=== PATIENT | male | born 1935 | race Caucasian/White ===

== ENCOUNTER → 2021-03-18 10:18 | Outpatient (CLI) | payer MEDICARE, SELFPAY ==
[2021-03-18 12:31] LABS: Hematocrit 36.2 % (40-54); Hemoglobin 11.3 g/dL (13.0-16.5); Mean Corp Hgb Conc 31.2 g/dL (32-36); Mean Corpuscular Hgb 30.1 pg (27.0-32.0); Mean Corpuscular Volume 96.5 fL (80-94); Mean Platelet Vol. 9.5 fl (6.2-12.0); Platelet Count 310 K/mm3 (150-450); RBC Distribution Width CV 12.6 % (11.6-14.6); RBC Distribution Width SD 45.1 fl (35.1-43.9); Red Blood Count 3.75 M/mm3 (4.6-6.2); White Blood Count 10.1 K/mm3 (4.4-11.0)
[2021-03-18 12:58] LABS: Anion Gap 5 (5-15); BUN 23 mg/dL (7-18); BUN/Creat Ratio 20.5 RATIO (10-20); Calcium,Total 9.4 mg/dL (8.5-10.1); Chloride 107 mmol/L (98-107); Creatinine, Serum 1.12 mg/dL (0.70-1.30); EST Glomerular Filtration Rate 66 mL/min (>60); Est Glom Filt Rate - Afr Amer 80 mL/min (>60); Glucose 91 mg/dL (74-106); Potassium 4.2 mmol/L (3.5-5.1); Sodium Level 140 mmol/L (136-145)
== END ==
PROVIDERS: PCP Nurse Practitioner Family; Referring Provider Urology; Visit Provider Urology
DX: N40.3 Nodular prostate with lower urinary tract symptoms (principal); I10 Essential (primary) hypertension
CPT/HCPCS: 36415; 80048; 84153; 85027

== ENCOUNTER 2021-04-16 10:38 | Day surgery (SDC) | payer MEDICARE, SELFPAY ==
--- NOTE | 2021-04-15 09:42 | EKG12_ITS ---
Test Reason : PRE OP Blood Pressure : / mmHG Vent. Rate : 078 BPM Atrial Rate : 078 BPM P-R Int : 164 ms QRS Dur : 134 ms QT Int : 398 ms P-R-T Axes : 074 089 071 degrees QTc Int : 453 ms Normal sinus rhythm Right bundle branch block Abnormal ECG Confirmed by MARY TORRE, MARIELENA ([id number]), newspaper editor managing WHITNEY MONTENEGRO ([id number]) on 04/16/2021 9:33:24 AM Referred By: Rogers Mac Confirmed By:MARIELENA HERNANDEZ MD
[2021-04-16] VITALS (12 sets, daily range): BP systolic 115–157; BP diastolic 40–70; PULSE 67–84; RESP 16–18; TEMP 36.3–36.9; O2SAT 92–100; BMI 21.5
[2021-04-16] MEDS: Lactated Ringers 1,000 ML 100 ML IV (11:07)
--- NOTE | 2021-04-16 12:35 | PROS_PTH ---
PATIENT: LENORE GRAJEDA LOC: [facility] U#:[id number] AGE/SX: 85/M ROOM: RE04/16/[address]: Dr. Rogers Mac MD : [id number] BED: DIS: 04/17/2021 SPEC #: [id number] RECD: 04/16/21 15:52 STATUS: SONJA REBhargav #: [id number] ORTIZ: 04/16/21 12:[address]: Rogers Mac DEPT: SURGICAL PATHOLOGY RECD BY: Megha Veliz ENTERED: 04/17/21 10:14 SP TYPE: TURP OTHR DR: Sharona Ramos, BRASS CUTTER-C Tissues: Prostate, NOS Procedures: Surgery Specimen Level IV HEADER OPERATION: Cysto, TUR prostate, Olympus PRE-OP DIAGNOSIS: Urinary retention, BPH TISSUE SUBMITTED: Prostate chips MICROSCOPIC DIAGNOSIS Prostate chips, TUR: Prostatic adenocarcinoma. See cancer summary in the comment section. SJ:antony 04/18/2021 COMMENT PROSTATE CANCER (TUR) SUMMARY: Procedure ? Transurethral resection of prostate (TURP) Histologic type - acinar adenocarcinoma Histologic grade ([place] Pattern) ? Winifred grade group 3 (Winifred score 4+3=7) Tertiary pattern ? 5 is also noted Percentage of pattern 5 ? 10% Tumor Quantitation (TUR specimens): Estimated percentage of prostate involved by tumor - ~75 to 80% Number of positive chips - ~60 Total number of chips - ~75 Periprostatic fat invasion ? not applicable Seminal vesicle invasion - not applicable Lymphvascular invasion ? not identified Perineural invasion ? not identified Additional pathologic findings ? benign prostatic hyperplasia - Chronic inflammation. Treatment effect ? no known presugical therapy. The above summary is in compliance with [employer] of [employer] (CAP) Cancer Protocols Checklist and [place] [employer] Committee on Cancer (AJCC), Staging Manual, 8th Ed. Case has been reviewed in consultation with Dr. Cedeno who concurs with the above diagnosis. IDC:AM MICROSCOPIC DESCRIPTION Slides are reviewed. GROSS DESCRIPTION Received is one container labeled with the patient's name and designated prostate tissue. The specimen consists of multiple irregular fragments of pink-valdez, rubbery, soft tissue that in aggregate weigh 5.1 gm and measure in aggregate 6 x 6 x 0.3 cm. The entire specimen is submitted in five cassettes. / AM:antony 04/17/21 TC:0 CPT: 02906
[2021-04-16] MEDS: Cefazolin 2 GM in 0.9% Normal Saline 100 ML IV (13:02)
--- NOTE | 2021-04-16 13:07 | HP.PCM_ITS ---
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 [facility] Medical History (Updated 04/16/21 @ 13:[address] Rogers Mac MD) Arthritis Back pain Cardiology follow-up encounter Former smoker High cholesterol History of pain when walking History of ulceration Hypertension Shortness of breath on exertion Skin tear TIA (transient ischemic attack) Wears dentures Wears glasses Home Medications Glucosamine Chondroitin 2 cap PO DAILY 04/14/21 [History Last Taken Unknown] PreserVision AREDS 1 cap PO DAILY 04/14/21 [History Last Taken Unknown] Restless Leg Relief 2 tab PO/SL QHS 04/14/21 [History Last Taken Unknown] acetaminophen 500 mg PO DAILY 04/14/21 [History Last Taken Unknown] aspirin [Aspirin Low Dose] 81 mg PO DAILY 04/14/21 [History Last Taken 04/11/21] diphenhydramine HCl [Benadryl Allergy] 25 mg PO Q6H PRN 04/14/21 [History Last Taken Unknown] diphenhydramine-acetaminophen [Acetaminophen PM] 2 tab PO QHS 04/14/21 [History Last Taken Unknown] dutasteride-tamsulosin 1 cap PO DAILY 04/14/21 [History Last Taken Unknown] fish,saf,flx,brg oils-O3,6,9#2 1 cap PO DAILY 04/14/21 [History Last Taken Unknown] magnesium 250 mg PO DAILY 04/14/21 [History Last Taken Unknown] metoprolol succinate 25 mg PO DAILY 04/14/21 [History Last Taken 04/16/21] niacin 1,000 mg PO DAILY 04/14/21 [History Last Taken Unknown] pravastatin 40 mg PO QHS 04/14/21 [History Last Taken Unknown] saw palmetto 450 mg PO DAILY 04/14/21 [History Last Taken Unknown] tamsulosin 0.4 mg PO DAILY 04/14/21 [History Last Taken Unknown] turmeric 1,000 mg PO DAILY 04/14/21 [History Last Taken Unknown] ciprofloxacin HCl [Cipro] 500 mg PO BID #14 tab 04/16/21 [Rx Last Taken Unknown] Allergy/AdvReac Type Severity Reaction Status Date / Time No Known Allergies Allergy Verified 04/16/21 10:44 Surgical History (Updated 04/14/21 @ 12:26 by Yamini Pedroza) History of cardiac catheterization (~2009) History of coronary artery stent placement (~2009) Social History Smoking Status: Former smoker Vital Signs Vital Signs Vital Signs: 04/16/21 11:08 Temperature 97.3 F L Temperature Source Temporal Pulse Rate 78 Respiratory Rate 16 Respiratory Pattern Normal Blood Pressure 157/70 H Blood Pressure Mean 99 Blood Pressure Source Monitor Blood Pressure Position Semi-Fowlers Blood Pressure Location Left Arm Pulse Ox 99 Oxygen Delivery Method Room Air Weight Weight: 70.1 kg Body Mass Index (BMI) 21.5 Physical Exam Const alert and oriented x3 General Appearance: cooperative HEENT normocephalic, head/scalp atraumatic, EAC's normal and TM's normal bilaterally Eyes PERRL and EOMs intact bilaterally Pupil: sluggish Neck no lymphadenopathy, supple and no JVD General: trachea midline Lymph Lymphatic: no lymphadenopathy noted, lymphedema and lymphadenopathy Resp normal respiratory effort, normal air movement and clear to auscultation bilaterally Cardio regular rate, regular rhythm and peripheral pulses 2+ throughout GI soft to palpation, non-tender and non-distended Extremity normal capillary refill and no clubbing, cyanosis or edema General Extremity: no tenderness to palpation of joints or extremities Skin no rashes or lesions noted General Skin Exam: turgor normal Lesions: no lesions Rashes: no rashes Neuro CN's II-XII intact bilaterally Speech: speech normal Motor Exam: strength 5/5 throughout; Negative for general weakness Psych thought process normal, cooperative and affect normal Appearance: appropriate Assessment & Plan Assessment/Plan (1) Urinary retention: PLAN: Urinary retention due to berhane BPH and obstruction plan to proceed with a TURP. Patient understands no guarantees that he will be able to urinate after surgery
--- NOTE | 2021-04-16 13:09 | PCM.DC ---
Discharge Instructions Diet Discharge Diet: No restrictions Activity Discharge Activity: May not drive while taking narcotic pain medications. (for 3 days.) May shower in (days): 1 Dressing / Incision Call your doctor if your incision/area has: Continuous Slow Oozing, Increased Pain/ Swelling, Increased Redness and Foul Smelling Discharge Call your doctor if you observe: Fever of 101 or Higher, Numbness or Tingling, Shortness of breath, Dizziness, Calf discomfort and Uncontrolled pain Cleanse incision/area with: Keep Dressing Clean & Dry Follow Up Care Please Follow Up With: Rogers Mac MD When: Call [phone] for an appointment Test Results: Test results from this visit will be discussed in further detail at your follow-up appointment, if applicable. Discharge Plan Admission Primary Reason for Your Visit: Narendra Attending Provider: Rogers Mac Primary Care Provider: Sharona Ramos NP Discharge Orders/Prescriptions Prescriptions: New ciprofloxacin HCl [Cipro] 500 mg tablet 500 mg PO BID Qty: 14 RF: 0 Continued pravastatin 40 mg tablet 40 mg PO QHS RF: 0 acetaminophen 500 mg Tablet 500 mg PO DAILY RF: 0 tamsulosin 0.4 mg capsule 0.4 mg PO DAILY RF: 0 diphenhydramine HCl [Benadryl Allergy] 25 mg Tablet 25 mg PO Q6H PRN (Reason: ALLERGIES) RF: 0 niacin 500 mg Tablet 1,000 mg PO DAILY RF: 0 magnesium 250 mg Tablet 250 mg PO DAILY RF: 0 metoprolol succinate 25 mg tablet extended release 24 hr 25 mg PO DAILY RF: 0 diphenhydramine-acetaminophen [Acetaminophen PM] 25-500 mg Tablet 2 tab PO QHS RF: 0 saw palmetto 450 mg Capsule 450 mg PO DAILY RF: 0 PreserVision AREDS [id number] Capsule 1 cap PO DAILY RF: 0 fish,saf,flx,brg oils-O3,6,9#2 [id number] mg Capsule 1 cap PO DAILY RF: 0 dutasteride-tamsulosin 0.5-0.4 mg capsule, ER multiphase 24 hr 1 cap PO DAILY RF: 0 turmeric 400 mg Capsule 1,000 mg PO DAILY RF: 0 Glucosamine Chondroitin 550-30-1 mg Capsule 2 cap PO DAILY RF: 0 Restless Leg Relief 2 tab PO/SL QHS RF: 0 Held aspirin [Aspirin Low Dose] 81 mg Tablet,Delayed Release (Dr/Ec) 81 mg PO DAILY RF: 0 Hold Instructions: Resume on 04/30/21. Referrals / Follow Up: Rogers Mac MD [STAFF PHYSICIAN] - Sharona Ramos NP, WILDLIFE BIOLOGY TECHNICIAN-C [Primary Care Provider] -
--- NOTE | 2021-04-16 13:54 | OP.PCM_ITS ---
Report of Operation Date of Procedure: 04/16/21 Pre-Operative Diagnosis: BPH with retention of urine Post-Operative Diagnosis: Same Surgery/Procedure Performed:: Transurethral resection of prostate Description of Surgical Findings:: In the preoperative setting I discussed with the patient how the surgery would be done with expect afterwards. We discussed how a prostate resection is done and we discussed the risk of the surgery inclu ding, bleeding, infection, retrograde ejaculation, changes with ejaculation or intercourse,. We discussed the possibility that the resection of the prostate may not alleviate his urinary symptoms. We discussed the small risk of developing scar tissue along the urethral channel and strictures. We also discussed the chance of the prostate could grow back and he may need further surgery or treatment in the future for prostate problems. Patient was taken back to the operating room, timeout procedure was performed, he was identified and marked and placed on the operating room table. He underwe nt general anesthesia. He was placed in dorsolithotomy position. Penis and testicles were prepped and draped in usual sterile fashion. Went into the bladder using the visual obturator with a resectoscope. Once inside the bladder identified the right and left ureteral orifice. I then identified the prostate and the anatomy of the prostate. I marked out the area of the sphincter and the verumontanum was identified. I then proceeded with the prostate resection first resected the median lobe. And then resected the right lobe of the prostate. Then to resect the left lobe of the prostate. I then resected the apical tissue of the prostate. Made sure that there was no injury to the sphincter or the verumontanum was still intact. At the end of the resection all the chips were Ellik out of the bladder. I then identified the left and right ureteral orifice and these were confirmed to be in good position and effluxing and not injured. The resectoscope was removed, a 22 [place] catheter was placed into the bladder on continuous irrigation. And the urine was fairly light pink color and draining normally. He was taken back to the PACU in good condition. Surgeon: Estefania Type of Anesthesia: General Drains: 22 [place] Island[place] three-way catheter Admit VTE Documentation VTE Present on Admission: No VTE Mechan Device Prophylaxis: SCD's
[2021-04-16] MEDS: 0.9% Normal Saline 1,000 ML 75 ML IV (16:59)
[2021-04-16] MEDS: Tamsulosin HCl 0.4 MG Capsule PO (18:06)
[2021-04-16] MEDS: Pravastatin 40 MG Tablet PO (21:38)
[2021-04-16] MEDS: Ciprofloxacin 400 MG/200 ML BAG 200 MG IV (21:38)
[2021-04-16] MEDS: Docusate Sodium 100 MG Capsule PO (21:38)
[2021-04-17 04:00] VITALS: BP 113/56; PULSE 68; RESP 16; TEMP 36.6; O2SAT 98
[2021-04-17] MEDS: 0.9% Normal Saline 1,000 ML 75 ML IV (06:13)
--- NOTE | 2021-04-17 06:55 | PCM.PN.BLA ---
Progress Note s/p turp, urine clear no clots Physical Exam Const alert and oriented x3 General Appearance: cooperative HEENT normocephalic, head/scalp atraumatic, EAC's normal and TM's normal bilaterally Eyes PERRL and EOMs intact bilaterally Pupil: sluggish Neck no lymphadenopathy, supple and no JVD General: trachea midline Lymph Lymphatic: no lymphadenopathy noted, lymphedema and lymphadenopathy Resp normal respiratory effort, normal air movement and clear to auscultation bilaterally Cardio regular rate, regular rhythm and peripheral pulses 2+ throughout GI soft to palpation, non-tender and non-distended Extremity normal capillary refill and no clubbing, cyanosis or edema General Extremity: no tenderness to palpation of joints or extremities Skin no rashes or lesions noted General Skin Exam: turgor normal Lesions: no lesions Rashes: no rashes Neuro CN's II-XII intact bilaterally Speech: speech normal Motor Exam: strength 5/5 throughout; Negative for general weakness Psych thought process normal, cooperative and affect normal Appearance: appropriate Assessment & Plan Assessment/Plan (1) Urinary retention: PLAN: d/c smith home after voids if can not void then home with smith.
--- NOTE | 2021-04-17 07:12 | NURSING ---
Black catheter removed 0700 with no issues
[2021-04-17 07:54] VITALS: BP 122/45; PULSE 69; RESP 18; TEMP 36.9; O2SAT 97
[2021-04-17 10:02] VITALS: BP 145/55; PULSE 70; RESP 18; TEMP 36.5; O2SAT 99
[2021-04-17 10:06] VITALS: PULSE 70
[2021-04-17] MEDS: Multivitamin (Healthy Eyes) Capsule 1 CAP PO (10:06)
[2021-04-17] MEDS: Pantoprazole Sodium 40 MG Tablet PO (10:06)
[2021-04-17] MEDS: Magnesium Chloride 64 MG Delay Rel.Tablet 128 MG PO (10:06)
[2021-04-17] MEDS: Metoprolol(XL)Succ 25 MG Tablet PO (10:06)
[2021-04-17] MEDS: Docusate Sodium 100 MG Capsule PO (10:07)
[2021-04-17] MEDS: Ciprofloxacin 400 MG/200 ML BAG 200 MG IV (10:07)
--- NOTE | 2021-04-17 10:42 | PHA.DC.MC ---
Pharmacy Service has performed discharge medication reconciliation and counseling for this patient. The patient was counseled on the following discharge medications and changes in medications for homegoing were reviewed. 1. CIPRO The Reason for Use, instructions for use, and potential side effects were reviewed for all new medications. The patient's questions regarding all of their medications were answered. The patient was able to verbally demonstrate an understanding of their discharge medications. Home Medications Glucosamine Chondroitin 2 cap PO DAILY 04/14/21 PreserVision AREDS 1 cap PO DAILY 04/14/21 Restless Leg Relief 2 tab PO/SL QHS 04/14/21 acetaminophen 500 mg PO DAILY 04/14/21 aspirin [Aspirin Low Dose] 81 mg PO DAILY 04/14/21 diphenhydramine HCl [Benadryl Allergy] 25 mg PO Q6H PRN 04/14/21 diphenhydramine-acetaminophen [Acetaminophen PM] 2 tab PO QHS 04/14/21 dutasteride-tamsulosin 1 cap PO DAILY 04/14/21 fish,saf,flx,brg oils-O3,6,9#2 1 cap PO DAILY 04/14/21 magnesium 250 mg PO DAILY 04/14/21 metoprolol succinate 25 mg PO DAILY 04/14/21 niacin 1,000 mg PO DAILY 04/14/21 pravastatin 40 mg PO QHS 04/14/21 saw palmetto 450 mg PO DAILY 04/14/21 tamsulosin 0.4 mg PO DAILY 04/14/21 turmeric 1,000 mg PO DAILY 04/14/21 ciprofloxacin HCl [Cipro] 500 mg PO BID #14 tab 04/16/21 The patient's discharge medication list was reviewed for discrepancies and discrepancies were resolved.
[2021-04-17 12:34] VITALS: BP 142/63; PULSE 70; RESP 16; TEMP 36.7; O2SAT 97
== END 2021-04-17 12:35 ==
LOC: SDC 10:39 → AC 10:39 → MS3 13:06
PROVIDERS: PCP Nurse Practitioner Family; Referring Provider Urology; Visit Provider Urology
PROC: (CPT 52601; principal; 2021-04-16 12:25)
DX: N40.1 Benign prostatic hyperplasia with lower urinary tract symptoms (principal); R33.8 Other retention of urine; N13.8 Other obstructive and reflux uropathy; C61 Malignant neoplasm of prostate; N31.2 Flaccid neuropathic bladder, not elsewhere classified; I10 Essential (primary) hypertension; E78.00 Pure hypercholesterolemia, unspecified; Z79.82 Long term (current) use of aspirin; Z79.899 Other long term (current) drug therapy; Z86.73 Personal history of transient ischemic attack (TIA), and cerebral infarction without residual deficits; Z87.891 Personal history of nicotine dependence
CPT/HCPCS: 00914; 52601; 88305; 93005; J7030; J7120; J0744; J2405

== ENCOUNTER 2021-11-27 00:30 | Inpatient (IN) | payer MEDICARE, SELFPAY ==
[2021-11-27 00:51] VITALS: BMI 20.7
[2021-11-27 01:00] VITALS: BP 134/80; PULSE 90; RESP 18; TEMP 37.2; O2SAT 97
--- NOTE | 2021-11-27 01:33 | PCS.PANDOC ---
PANDEMIC DOCUMENTATION INITIATED: Date: 07/07/2021 Time: 190
--- NOTE | 2021-11-27 01:34 | NURSING ---
Pt arrived via ambulance services at 0030, personal belongings included tshirt and full set of dentures. Black was in place on arrival. Denies pain at this time.
[2021-11-27] MEDS: 0.9% Saline Lock 10 ML Syringe IV ×2 (02:08→12:08)
[2021-11-27] MEDS: 0.9% Normal Saline 1,000 ML 50 ML IV (02:08)
[2021-11-27 06:31] VITALS: BP 117/57; PULSE 88; RESP 18; TEMP 36.5; O2SAT 98
[2021-11-27 06:47] LABS: Absolute Lymphocyte Count 0.36 X10^3/uL (0.83-4.51); Absolute Neutrophil Count 11.8 X10^3/uL (2.0-7.7); Basophil# 0.04 X10^3/uL; Basophil% 0.3 % (0-1); Eosinophil# 0.21 X10^3/uL; Eosinophils% 1.6 % (0-5); Hematocrit 28.4 % (40-54); Hemoglobin 9.4 g/dL (13.0-16.5); Lymphocyte # 0.36 X10^3/ul (0.83-4.51); Lymphocyte % 2.8 % (19-41); Mean Corp Hgb Conc 33.1 g/dL (32-36); Mean Corpuscular Hgb 29.9 pg (27.0-32.0); Mean Corpuscular Volume 90.4 fL (80-94); Mean Platelet Vol. 9.7 fl (6.2-12.0); Monocyte# 0.44 X10^3/uL; Monocyte% 3.4 % (0-10); NRBC Flagged by Analyzer 0 % (0-5); Neutrophil # 11.78 X10^3/uL (2.7-7.7); Neutrophil % 90.4 % (47-70); POSITIVE DIFFERENTIAL YES; POSITIVE MORPHOLOGY YES; Platelet Count 229 K/mm3 (150-450); RBC Distribution Width CV 13.4 % (11.6-14.6); RBC Distribution Width SD 44.2 fl (35.1-43.9); Red Blood Count 3.14 M/mm3 (4.6-6.2)
[2021-11-27 07:05] LABS: Differential Indicated SCAN CRITERIA MET
[2021-11-27 07:12] LABS: Anion Gap 13 (5-15); BUN 89 mg/dL (7-18); BUN/Creat Ratio 13.9 RATIO (10-20); Calcium,Total 8.7 mg/dL (8.5-10.1); Chloride 110 mmol/L (98-107); Creatinine, Serum 6.41 mg/dL (0.70-1.30); EST Glomerular Filtration Rate 9 mL/min (>60); Est Glom Filt Rate - Afr Amer 11 mL/min (>60); Estimated Creatinine Clearance 8.19 ml/min; Glucose 50 mg/dL (74-106); Sodium Level 141 mmol/L (136-145)
--- NOTE | 2021-11-27 07:45 | HP.PCM_ITS ---
HPI - General General Date of Admission: 11/27/21 HPI Narrative LENORE GRAJEDA, is a 86 M who presents to an outside emergency room with confusion urinary tract infection was found to have distended bladder and bilateral hydronephrosis in both kidneys the outside emergency room was only able to place a 12 [place] catheter and they reported kieran pus coming out of the bladder they called me and I excepted the patient as a transfer since he is my patient and he was admitted to the hospital. We change the catheter to an 18 [place] this morning the urine is now draining clear yellow urine he has acute renal failure due to the fact that he stopped self-catheterization probably from a urinary tract infection to cause confusion. This morning he is alert to himself he is oriented to place he is still slightly confused but he is better he is clinically stable the urine is draining from the bladder. He does have an elevated white blood count and urine cultures pending [facility] Medical History (Updated 11/27/21 @ 07:[address] Rogers Mac MD) Arthritis Back pain Cardiology follow-up encounter Former smoker High cholesterol History of pain when walking History of ulceration Hypertension Shortness of breath on exertion Skin tear TIA (transient ischemic attack) Wears dentures Wears glasses Home Medications Glucosamine Chondroitin 2 cap PO DAILY 04/14/21 [History Last Taken Unknown] PreserVision AREDS 1 cap PO DAILY 04/14/21 [History Last Taken Unknown] Restless Leg Relief 2 tab PO/SL QHS 04/14/21 [History Last Taken Unknown] acetaminophen 500 mg PO DAILY 04/14/21 [History Last Taken Unknown] aspirin [Aspirin Low Dose] 81 mg PO DAILY 04/14/21 [History Last Taken 04/11/21] diphenhydramine HCl [Benadryl Allergy] 25 mg PO Q6H PRN 04/14/21 [History Last Taken Unknown] diphenhydramine-acetaminophen [Acetaminophen PM] 2 tab PO QHS 04/14/21 [History Last Taken Unknown] dutasteride-tamsulosin 1 cap PO DAILY 04/14/21 [History Last Taken Unknown] fish,saf,flx,brg oils-O3,6,9#2 1 cap PO DAILY 04/14/21 [History Last Taken Unknown] magnesium 250 mg PO DAILY 04/14/21 [History Last Taken Unknown] metoprolol succinate 25 mg PO DAILY 04/14/21 [History Last Taken 04/16/21] niacin 1,000 mg PO DAILY 04/14/21 [History Last Taken Unknown] pravastatin 40 mg PO QHS 04/14/21 [History Last Taken Unknown] saw palmetto 450 mg PO DAILY 04/14/21 [History Last Taken Unknown] tamsulosin 0.4 mg PO DAILY 04/14/21 [History Last Taken Unknown] turmeric 1,000 mg PO DAILY 04/14/21 [History Last Taken Unknown] ciprofloxacin HCl [Cipro] 500 mg PO BID #14 tab 04/16/21 [Rx Last Taken Unknown] Allergy/AdvReac Type Severity Reaction Status Date / Time No Known Allergies Allergy Verified 04/16/21 10:44 Surgical History History of cardiac catheterization (~2009) History of coronary artery stent placement (~2009) Social History Smoking Status: Former smoker ROS Constitutional Constitutional: Denies chills, fever(s) or malaise Eyes Eyes: Denies blurry vision or change in vision ENT HEENT: Reports none Cardiovascular Cardiovascular: Denies chest pain or palpitations Respiratory/Chest Respiratory/Chest: Denies cough or shortness of breath with exertion Gastrointestinal Gastrointestinal: Denies abdominal pain, constipation or diarrhea Musculoskeletal Musculoskeletal: Denies back pain, joint stiffness or joint swelling Integumentary Integumentary: Denies dry skin, jaundice, lesions or rash Neurologic Neurologic: Denies confusion, syncope or weakness Psychiatric Psychiatric: Reports none; Denies anxiety or depression Endocrine Endocrinology: Denies excessive sweating, fatigue or flushing Hematologic/Lymphatic Hematologic/Lymphatic: Denies anemia, easy bleeding or easy bruising Vital Signs Vital Signs Vital Signs: 11/27/21 00:51 11/27/21 01:00 11/27/21 06:31 Temperature 99.0 F 97.7 F L Temperature Source Temporal Oral Pulse Rate 90 88 Respiratory Rate 18 18 Respiratory Effort Normal Non-Labored Respiratory Depth Normal Respiratory Pattern Normal Blood Pressure 134/80 H 117/57 L Blood Pressure Mean 98 77 Blood Pressure Source Monitor Monitor Blood Pressure Position Semi-Fowlers Supine Blood Pressure Location Right Arm Left Arm Pulse Ox 97 98 Oxygen Delivery Method Room Air Room Air Room Air Weight Weight: 67.5 kg Body Mass Index (BMI) 20.7 Physical Exam Const alert and oriented x3 General Appearance: cooperative HEENT normocephalic and head/scalp atraumatic Eyes PERRL and EOMs intact bilaterally Neck supple, no JVD and no carotid bruits Resp normal respiratory effort, normal air movement and clear to auscultation bilaterally Cardio regular rate and no murmurs GI normal to inspection, nondistended, normoactive bowel sounds and soft to palpation Extremity normal capillary refill General Extremity: no tenderness to palpation of joints or extremities; Negative for edema Skin no rashes or lesions noted and no wounds General Skin Exam: no breakdown Neuro CN's II-XII intact bilaterally Psych affect normal Appearance: appropriate Results Lab / Micro Data Result Diagrams: 11/27/21 06:34 11/27/21 06:34 Labs: Laboratory Results - last 24 hr 11/27/21 06:34: WBC 13.0 H, RBC 3.14 L, Hgb 9.4 L, Hct 28.4 L, MCV 90.4, MCH 29.9, MCHC 33.1, RDW Std Deviation 44.2 H, RDW Coeff of Carlos 13.4, Plt Count 229, MPV 9.7, Immature Gran % (Auto) 1.500 H, Neut % (Auto) 90.4 H, Lymph % (Auto) 2.8 L, [place] % (Auto) 3.4, Eos % (Auto) 1.6, Baso % (Auto) 0.3, Absolute Neuts (auto) 11.8 H, Absolute Lymphs (auto) 0.36 L, Nucleated RBC % 0 11/27/21 06:34: Sodium 141, Potassium 4.0, Chloride 110 H, Carbon Dioxide 18.0 L , Anion Gap 13, BUN 89 H, Creatinine 6.41 H, Estim Creat Clear Calc 8.19, Est GFR (MDRD) Af Amer 11 L, Est GFR (MDRD) Non-Af 9 L, BUN/Creatinine Ratio 13.9, Glucose 50 L, Calcium 8.7 Assessment & Plan Assessment/Plan (1) Confusion: PLAN: He has some confusion probably due to the fact that he has a i nfection hopefully this will clear as we treat his infection and his creatinine improves (2) Urinary retention: PLAN: Retention of urine due to atonic bladder Black catheter in place (3) UTI (urinary tract infection): PLAN: Continue with Rocephin for antibiotics await urine cultures (4) Hydronephrosis: PLAN: Bilateral hydronephrosis due to distended bladder we will check a renal ultrasound today (5) Acute renal failure: PLAN: Acute renal failure with creatinine up to 6.41 what the monitor will check her creatinine tomorrow morning good urine output we will check bladder and renal ultrasound. Resume all medications aspirin and metoprolol.
--- NOTE | 2021-11-27 07:50 | US_ITS ---
STUDY: RENAL ULTRASOUND - COMPLETE REASON FOR EXAM: Male, 86 years old. Hydronephrosis TECHNIQUE: Ultrasound evaluation of the kidneys was performed with real-time and static wayne-scale imaging. COMPARISON: None. FINDINGS: RIGHT KIDNEY: Normal location of the right kidney, which is normal in size. The right kidney measures 12.4 cm x 7 cm x 6.5 cm. There is a normal cortex of the right kidney. The renal cortex measures 2.1 cm. There is no right renal mass or cyst. There are no right renal calculi. There is moderate hydronephrosis of the right kidney. DISTAL RIGHT URETER: There is non-visualization of the distal right ureter. There is no demonstrated right ureterovesical junction calculus. There is no demonstrated right ureteral jet. LEFT KIDNEY: Normal location of the left kidney, which is normal in size. The left kidney measures 12 cm x 4.4 cm x 5.4 cm. There is a normal cortex of the left kidney. The renal cortex measures 1.8 cm. There is no left renal mass or cyst. There are no left renal calculi. There is mild hydronephrosis of the left kidney. DISTAL LEFT URETER: There is non-visualization of the distal left ureter. There is no demonstrated left ureterovesical junction calculus. There is no demonstrated left ureteral jet. BLADDER: A BASS catheter is seen within the urinary bladder. The bladder is empty. US/Kidney and Bladder IMPRESSION: Bilateral hydronephrosis right worse than left. Electronically Signed: Anthony Giron MD at 11:48 EST , Service support ,
[2021-11-27 07:51] LABS: Differential Comment SCANNED
[2021-11-27] MEDS: Aspirin E.C. 81 MG Tablet PO (09:05)
[2021-11-27 09:06] VITALS: BP 118/52; PULSE 92; RESP 18; TEMP 36.4; O2SAT 96
[2021-11-27] MEDS: Ceftriaxone 1 GM/50 ML BAG IV (10:01)
--- NOTE | 2021-11-27 12:05 | CASEMGMT ---
RN CM Face to Face with patient for initial transition planning/care coordination assessment. RN CM introduced self and role at [facility] [place]. Patient lying in bed, alert and confused. RN CM called daughter Therese to complete assessment at this time at patient is unable to participate. Daughter willing to participate in assessment and is able to answer all questions appropriately. Care providers, pharmacy, and demographics verified. Daughter wishes to discharge home with possible HHC or to SNF if needed. Will monitor progress with therapy. Daughter states she has no further needs or concerns at this time. CM to follow for discharge planning needs that may arise. PCP: Sharona Ramos PILOT FUEL ENGINEER Specialists: Estefania Urologist; Nemesio Nguyen, hourly caregiver, Nick Preferred Pharmacy: [facility] Insurance: [id number] [facility] Prescription Benefit: yes Living Will/HPOA: none LNOK: Daughter Living Arrangements: Patient lives alone in a single story home with 4-5 steps to enter the home. Daughter states patient was independent at home prior to current illness Transportation: self, daughter DME/HHC: Patient has cane, walker, and grab bars at home. No previous HHC or SNF. Will monitor progress with therapy for safe discharge disposition. Disposition Plan: HHC vs SNF Halina LIPSCOMB, RN, CM
[2021-11-27] MEDS: Vancomycin IV 1,000 MG/200 ML BAG 200 MG IV (12:09)
[2021-11-27] MEDS: Menthol/Lanolin/Calamine/Znox 113 GM Tube 1 APPLIC TOPICAL ×2 (12:14→20:52)
[2021-11-27] MEDS: Acetaminophen 500 MG Tablet 1000 MG PO ×2 (12:17→20:56)
[2021-11-27 12:29] VITALS: BP 115/50; PULSE 101; RESP 18; TEMP 36.6; O2SAT 94
[2021-11-27] MEDS: Metoprolol(XL)Succ 25 MG Tablet PO (12:29)
[2021-11-27 14:55] VITALS: BP 110/74; PULSE 95; RESP 16; TEMP 36.8; O2SAT 96
[2021-11-27 20:31] VITALS: BP 125/67; PULSE 67; RESP 16; TEMP 36.7; O2SAT 93
[2021-11-27] MEDS: Pravastatin 40 MG Tablet PO (20:56)
[2021-11-28 03:05] VITALS: BP 123/71; PULSE 70; RESP 15; TEMP 36.3; O2SAT 95
[2021-11-28 07:00] LABS: Hematocrit 31.8 % (40-54); Hemoglobin 10.4 g/dL (13.0-16.5); Mean Corp Hgb Conc 32.7 g/dL (32-36); Mean Corpuscular Hgb 29.5 pg (27.0-32.0); Mean Corpuscular Volume 90.3 fL (80-94); Mean Platelet Vol. 10.1 fl (6.2-12.0); Platelet Count 277 K/mm3 (150-450); RBC Distribution Width CV 13.6 % (11.6-14.6); RBC Distribution Width SD 44.8 fl (35.1-43.9); Red Blood Count 3.52 M/mm3 (4.6-6.2); White Blood Count 16.8 K/mm3 (4.4-11.0)
--- NOTE | 2021-11-28 07:18 | CON.PCM.UR_ITS ---
Assessment & Plan Assessment/Plan (1) Acute renal failure: (2) Hydronephrosis: (3) UTI (urinary tract infection): (4) Confusion: (5) Urinary retention: HPI Consult Data Date of Consult: 11/28/21 HPI Narrative HPI Narrative: 86-year-old male, hospital day #2 he was admitted with acute renal failure Black catheter was placed he has some delirium and dementia from being ill his white count still somewhat high he had gram-positive cocci on blood cultures with septic, at this point he looks fine he is recovering but still only oriented to self not really the place or person. Blood pressure stable no fevers or chills White count still high he is back on all his rather regular medications urine is draining well awaiting labs from this morning but I think once his creatinine normalizes and his white count normalizes with treatment for his infection then he probably can rehab at acute care hospital or transitional care unit once he is ready. [facility] Medical History (Updated 11/27/21 @ 07:[address] Rogers Mac MD) Arthritis Back pain Cardiology follow-up encounter Former smoker High cholesterol History of pain when walking History of ulceration Hypertension Shortness of breath on exertion Skin tear TIA (transient ischemic attack) Wears dentures Wears glasses Home Medications Glucosamine Chondroitin 2 cap PO DAILY 04/14/21 [History Last Taken Unknown] PreserVision AREDS 1 cap PO DAILY 04/14/21 [History Last Taken Unknown] Restless Leg Relief 2 tab PO/SL QHS 04/14/21 [History Last Taken Unknown] acetaminophen 500 mg PO DAILY 04/14/21 [History Last Taken Unknown] aspirin [Aspirin Low Dose] 81 mg PO DAILY 04/14/21 [History Last Taken 04/11/21] diphenhydramine HCl [Benadryl Allergy] 25 mg PO Q6H PRN 04/14/21 [History Last Taken Unknown] diphenhydramine-acetaminophen [Acetaminophen PM] 2 tab PO QHS 04/14/21 [History Last Taken Unknown] dutasteride-tamsulosin 1 cap PO DAILY 04/14/21 [History Last Taken Unknown] fish,saf,flx,brg oils-O3,6,9#2 1 cap PO DAILY 04/14/21 [History Last Taken Unknown] magnesium 250 mg PO DAILY 04/14/21 [History Last Taken Unknown] metoprolol succinate 25 mg PO DAILY 04/14/21 [History Last Taken 04/16/21] niacin 1,000 mg PO DAILY 04/14/21 [History Last Taken Unknown] pravastatin 40 mg PO QHS 04/14/21 [History Last Taken Unknown] saw palmetto 450 mg PO DAILY 04/14/21 [History Last Taken Unknown] tamsulosin 0.4 mg PO DAILY 04/14/21 [History Last Taken Unknown] turmeric 1,000 mg PO DAILY 04/14/21 [History Last Taken Unknown] ciprofloxacin HCl [Cipro] 500 mg PO BID #14 tab 04/16/21 [Rx Last Taken Unknown] Allergy/AdvReac Type Severity Reaction Status Date / Time No Known Allergies Allergy Verified 04/16/21 10:44 Surgical History History of cardiac catheterization (~2009) History of coronary artery stent placement (~2009) Social History Smoking Status: Former smoker Physical Exam Const alert General Appearance: cooperative HEENT normocephalic and head/scalp atraumatic Eyes PERRL and EOMs intact bilaterally Neck supple, no JVD and no carotid bruits Resp normal respiratory effort, normal air movement and clear to auscultation bilaterally Cardio regular rate and no murmurs GI normal to inspection, nondistended, normoactive bowel sounds and soft to palpation Extremity normal capillary refill General Extremity: no tenderness to palpation of joints or extremities; Negative for edema Skin no rashes or lesions noted and no wounds General Skin Exam: no breakdown Neuro CN's II-XII intact bilaterally Psych affect normal Appearance: appropriate Medical Records Data Medical Nutrition Assessment Dietitian: Malnutrition Criteria Met Start: 11/27/21 15:18 Freq: Status: Active Protocol: Document 11/27/21 15:19 [facility] (Rec: 11/27/21 15:20 [facility] [id number]) Nutrition Malnutrition Evidence of Malnutrition Exists Yes Malnutrition (severe): Acute Illness/Injury Evidenced By Suboptimal Energy Intake ( Severe),Weight Loss (Severe) Clinical Problem Acute Disease or Injury Related Malnutrition Etiology severe acute malnutrition related to inadequate energy intake w/ current UTI, urine retention, charted stopped self catherization possible contributing to mental status change/ confusion Signs/Symptoms as evidenced by unintentional weight loss of 5%/ 8# weight loss for reported UBW 157# x 1 wk; < 50% of estimated nutrition needs x 1 wks Status Active Problem Recommendation Dietitian Recommendations/Changes regular general diet appropriate with addition of Ensure Enlive at L and D Lab / Micro Data Result Diagrams: 11/28/21 06:06 11/27/21 06:34 Labs: Laboratory Results - last 24 hr 11/27/21 06:34: Differential Comment SCANNED 11/28/21 06:06: WBC 16.8 H, RBC 3.52 L, Hgb 10.4 L, Hct 31.8 L, MCV 90.3, MCH 29.5, MCHC 32.7, RDW Std Deviation 44.8 H, RDW Coeff of Carlos 13.6, Plt Count 277, MPV 10.1 Radiology Impression Renal Ultrasound 11/27/21 07:50 IMPRESSION: Bilateral hydronephrosis right worse than left. Electronically Signed: Anthony Giron MD at 11:48 EST , Service support ,
[2021-11-28 07:44] LABS: Vancomycin, Trough Level 7.2 ug/mL (5.0-15.0)
[2021-11-28 07:45] LABS: Anion Gap 6 (5-15); BUN 63 mg/dL (7-18); BUN/Creat Ratio 25.8 RATIO (10-20); Calcium,Total 9.2 mg/dL (8.5-10.1); Chloride 113 mmol/L (98-107); Creatinine, Serum 2.44 mg/dL (0.70-1.30); EST Glomerular Filtration Rate 27 mL/min (>60); Est Glom Filt Rate - Afr Amer 33 mL/min (>60); Estimated Creatinine Clearance 21.52 ml/min; Glucose 141 mg/dL (74-106); Potassium 3.4 mmol/L (3.5-5.1); Sodium Level 147 mmol/L (136-145)
[2021-11-28 08:00] VITALS: BP 154/76; PULSE 93; RESP 18; TEMP 37.1; O2SAT 96
[2021-11-28] MEDS: Aspirin E.C. 81 MG Tablet PO (08:05)
[2021-11-28 08:11] VITALS: O2SAT 96
--- NOTE | 2021-11-28 08:33 | NURSING ---
SITTING UP IN CHAIR EATING BREAKFAST. TOMMIE Barkley LPN IN ROOM.
[2021-11-28] MEDS: Menthol/Lanolin/Calamine/Znox 113 GM Tube 1 APPLIC TOPICAL ×2 (09:57→21:22)
[2021-11-28 09:58] VITALS: PULSE 93
[2021-11-28] MEDS: Metoprolol(XL)Succ 25 MG Tablet PO (09:58)
[2021-11-28] MEDS: Acetaminophen 500 MG Tablet 1000 MG PO ×2 (09:59→21:21)
[2021-11-28] MEDS: Ceftriaxone 1 GM/50 ML BAG IV (10:02)
[2021-11-28 13:00] VITALS: BP 149/67; PULSE 80; RESP 16; TEMP 37.2; O2SAT 98
--- NOTE | 2021-11-28 16:24 | PCM.DC.SUM ---
Providers Date of Admission: 11/27/21 Primary Care Physician: DARNELL HortaC Reason For Visit: JONES Diagnosis Discharge Diagnosis (1) Acute renal failure: Status: Acute Code(s): N17.9 - Acute kidney failure, unspecified (2) Hydronephrosis: Status: Acute Code(s): N13.30 - Unspecified hydronephrosis (3) UTI (urinary tract infection): Status: Acute Code(s): N39.0 - Urinary tract infection, site not specified (4) Confusion: Status: Acute Code(s): R41.0 - Disorientation, unspecified (5) Urinary retention: Status: Acute Code(s): R33.9 - Retention of urine, unspecified Medications at Discharge Home Medications Glucosamine Chondroitin 2 cap PO DAILY 04/14/21 PreserVision AREDS 1 cap PO DAILY 04/14/21 Restless Leg Relief 2 tab PO/SL QHS 04/14/21 acetaminophen 500 mg PO DAILY 04/14/21 aspirin [Aspirin Low Dose] 81 mg PO DAILY 04/14/21 diphenhydramine HCl [Benadryl Allergy] 25 mg PO Q6H PRN 04/14/21 diphenhydramine-acetaminophen [Acetaminophen PM] 2 tab PO QHS 04/14/21 dutasteride-tamsulosin 1 cap PO DAILY 04/14/21 fish,saf,flx,brg oils-O3,6,9#2 1 cap PO DAILY 04/14/21 magnesium 250 mg PO DAILY 04/14/21 metoprolol succinate 25 mg PO DAILY 04/14/21 niacin 1,000 mg PO DAILY 04/14/21 pravastatin 40 mg PO QHS 04/14/21 saw palmetto 450 mg PO DAILY 04/14/21 tamsulosin 0.4 mg PO DAILY 04/14/21 turmeric 1,000 mg PO DAILY 04/14/21 ciprofloxacin HCl [Cipro] 500 mg PO BID #14 tab 04/16/21 amoxicillin 500 mg PO BID #20 cap 11/28/21 Hospital Course Summary of Care Provided Minutes Spent on Discharge: 30 Hospital Course: 86-year-old male who presented to the hospital with acute renal failure urinary tract infection sepsis blood cultures were positive he is now getting better and we can start him on amoxicillin on discharge she is currently on Rocephin grown Enterococcus in the urine Black catheter was placed for retention of urine he has a history of atonic bladder he developed a urinary tract infection stop self cathing and then developed renal failure and was transferred here for further care he is now improving dramatically but he needs to go to a senior care facility for rehab and improvement before he is safe to go home by himself his daughter was with him today and she is in agreement and he was agreeable to going to a short-term skilled facility. Once we have bed is available he can be discharged. Physical Exam Const alert General Appearance: cooperative HEENT normocephalic, head/scalp atraumatic, EAC's normal and TM's normal bilaterally Eyes PERRL and EOMs intact bilaterally Pupil: sluggish Neck no lymphadenopathy, supple and no JVD General: trachea midline Lymph Lymphatic: no lymphadenopathy noted, lymphedema and lymphadenopathy Resp normal respiratory effort, normal air movement and clear to auscultation bilaterally Cardio regular rate, regular rhythm and peripheral pulses 2+ throughout GI soft to palpation, non-tender and non-distended Extremity normal capillary refill and no clubbing, cyanosis or edema General Extremity: no tenderness to palpation of joints or extremities Skin no rashes or lesions noted General Skin Exam: turgor normal Lesions: no lesions Rashes: no rashes Neuro CN's II-XII intact bilaterally Speech: speech normal Motor Exam: strength 5/5 throughout; Negative for general weakness Psych thought process normal, cooperative and affect normal Appearance: appropriate Medical Records Data Medical Nutrition Assessment Dietitian: Malnutrition Criteria Met Start: 11/27/21 15:18 Freq: Status: Active Protocol: Document 11/27/21 15:19 [facility] (Rec: 11/27/21 15:20 [facility] [id number]) Nutrition Malnutrition Evidence of Malnutrition Exists Yes Malnutrition (severe): Acute Illness/Injury Evidenced By Suboptimal Energy Intake ( Severe),Weight Loss (Severe) Clinical Problem Acute Disease or Injury Related Malnutrition Etiology severe acute malnutrition related to inadequate energy intake w/ current UTI, urine retention, charted stopped self catherization possible contributing to mental status change/ confusion Signs/Symptoms as evidenced by unintentional weight loss of 5%/ 8# weight loss for reported UBW 157# x 1 wk; < 50% of estimated nutrition needs x 1 wks Status Active Problem Recommendation Dietitian Recommendations/Changes regular general diet appropriate with addition of Ensure Enlive at L and D Weight / BMI Weight Weight: 67.5 kg Body Mass Index (BMI) 20.7 ABG / Lab / Microbiology Data Result Diagrams: 11/28/21 06:06 11/28/21 06:06 Laboratory: Laboratory Results - last 24 hr 11/28/21 06:06: WBC 16.8 H, RBC 3.52 L, Hgb 10.4 L, Hct 31.8 L, MCV 90.3, MCH 29.5, MCHC 32.7, RDW Std Deviation 44.8 H, RDW Coeff of Carlos 13.6, Plt Count 277, MPV 10.1 11/28/21 06:06: Sodium 147 H, Potassium 3.4 L, Chloride 113 H, Carbon Dioxide 28.0, Anion Gap 6, BUN 63 H, Creatinine 2.44 H, Estim Creat Clear Calc 21.52, Est GFR (MDRD) Af Amer 33 L, Est GFR (MDRD) Non-Af 27 L, BUN/Creatinine Ratio 25.8 H, Glucose 141 H, Calcium 9.2 11/28/21 06:06: Vancomycin Trough 7.2 Microbiology: Microbiology 11/27/21 03:10 Urine Catheter - Black Urine Culture - Preliminary GPC Poss Enterococcus sp D/C Instructions Discharge Diet: No restrictions Discharge Activity: Return to Normal Activity Weight Bearing Status: Weight bearing as tolerated Catheter: Black to leg bag and Black to large bag Drain: [place] Meaningful Use Info Meaningful Use Diagnoses (Choose all that apply): None applicable Discharge Plan Admission Admit Date/Time: 11/27/21 01:31 Primary Reason for Your Visit: renal failure. Attending Provider: Rogers Mac Primary Care Provider: Sharona Ramos NP Discharge Orders/Prescriptions Prescriptions: New amoxicillin 500 mg capsule 500 mg PO BID Qty: 20 RF: 0 Continued pravastatin 40 mg tablet 40 mg PO QHS RF: 0 aspirin [Aspirin Low Dose] 81 mg Tablet,Delayed Release (Dr/Ec) 81 mg PO DAILY RF: 0 Hold Instructions: Resume on 04/30/21. acetaminophen 500 mg Tablet 500 mg PO DAILY RF: 0 tamsulosin 0.4 mg capsule 0.4 mg PO DAILY RF: 0 diphenhydramine HCl [Benadryl Allergy] 25 mg Tablet 25 mg PO Q6H PRN (Reason: ALLERGIES) RF: 0 niacin 500 mg Tablet 1,000 mg PO DAILY RF: 0 magnesium 250 mg Tablet 250 mg PO DAILY RF: 0 metoprolol succinate 25 mg tablet extended release 24 hr 25 mg PO DAILY RF: 0 diphenhydramine-acetaminophen [Acetaminophen PM] 25-500 mg Tablet 2 tab PO QHS RF: 0 saw palmetto 450 mg Capsule 450 mg PO DAILY RF: 0 PreserVision AREDS [id number] Capsule 1 cap PO DAILY RF: 0 fish,saf,flx,brg oils-O3,6,9#2 [id number] mg Capsule 1 cap PO DAILY RF: 0 dutasteride-tamsulosin 0.5-0.4 mg capsule, ER multiphase 24 hr 1 cap PO DAILY RF: 0 turmeric 400 mg Capsule 1,000 mg PO DAILY RF: 0 Glucosamine Chondroitin 550-30-1 mg Capsule 2 cap PO DAILY RF: 0 Restless Leg Relief 2 tab PO/SL QHS RF: 0 ciprofloxacin HCl [Cipro] 500 mg tablet 500 mg PO BID Qty: 14 RF: 0 Referrals / Follow Up: Rogers Mac MD [STAFF PHYSICIAN] - Sharona Ramos NP, LEAD CUSTODIAN-C [Primary Care Provider] - Disposition Discharge Orders: Discharge Patient (Routine); Ordered 11/28/21 Ordered By: Dr. Rogers Mac
--- NOTE | 2021-11-28 16:26 | DCINST_ITS ---
Discharge Instructions Diet Discharge Diet: No restrictions Activity Weight Bearing Status: Weight bearing as tolerated Dressing / Incision Catheter: Black to leg bag and Black to large bag Drain: [place] Follow Up Care Test Results: Test results from this visit will be discussed in further detail at your follow-up appointment, if applicable. Discharge Plan Admission Admit Date/Time: 11/27/21 01:31 Primary Reason for Your Visit: renal failure. Attending Provider: Rogers Mac Primary Care Provider: Sharona Ramos NP Discharge Orders/Prescriptions Prescriptions: New amoxicillin 500 mg capsule 500 mg PO BID Qty: 20 RF: 0 Continued pravastatin 40 mg tablet 40 mg PO QHS RF: 0 aspirin [Aspirin Low Dose] 81 mg Tablet,Delayed Release (Dr/Ec) 81 mg PO DAILY RF: 0 Hold Instructions: Resume on 04/30/21. acetaminophen 500 mg Tablet 500 mg PO DAILY RF: 0 tamsulosin 0.4 mg capsule 0.4 mg PO DAILY RF: 0 diphenhydramine HCl [Benadryl Allergy] 25 mg Tablet 25 mg PO Q6H PRN (Reason: ALLERGIES) RF: 0 niacin 500 mg Tablet 1,000 mg PO DAILY RF: 0 magnesium 250 mg Tablet 250 mg PO DAILY RF: 0 metoprolol succinate 25 mg tablet extended release 24 hr 25 mg PO DAILY RF: 0 diphenhydramine-acetaminophen [Acetaminophen PM] 25-500 mg Tablet 2 tab PO QHS RF: 0 saw palmetto 450 mg Capsule 450 mg PO DAILY RF: 0 PreserVision AREDS [id number] Capsule 1 cap PO DAILY RF: 0 fish,saf,flx,brg oils-O3,6,9#2 [phone] mg Capsule 1 cap PO DAILY RF: 0 dutasteride-tamsulosin 0.5-0.4 mg capsule, ER multiphase 24 hr 1 cap PO DAILY RF: 0 turmeric 400 mg Capsule 1,000 mg PO DAILY RF: 0 Glucosamine Chondroitin 550-30-1 mg Capsule 2 cap PO DAILY RF: 0 Restless Leg Relief 2 tab PO/SL QHS RF: 0 ciprofloxacin HCl [Cipro] 500 mg tablet 500 mg PO BID Qty: 14 RF: 0 Referrals / Follow Up: Rogers Mac MD [STAFF PHYSICIAN] - Richard,Sharona FIELD RESEARCH ASSOCIATE, FIELD RESEARCH ASSOCIATE-C [Primary Care Provider] - Disposition Discharge Orders: Discharge Patient (Routine); Ordered 11/28/21 Ordered By: Dr. Rogers Mac
--- NOTE | 2021-11-28 16:27 | PCM.TXEXTCAR ---
Diet 11/27/21 07:52 Diet: Regular - General Food consistency:: Regular Liquid Consistency:: Regular/Thin Type of Dietary Supplement:: Ensure Enlive Is pt able to select menu?: Yes Diet Comments: 8 oz at L and D - vary flavors Wound(s) Bilateral Elbows: Wound Type: Abrasion Bilateral Knees: Wound Type: Abrasion Bilateral shins: Wound Type: Abrasion Problem/Diagnosis (1) Acute renal failure: Status: Acute (2) Hydronephrosis: Status: Acute (3) UTI (urinary tract infection): Status: Acute (4) Confusion: Status: Acute (5) Urinary retention: Status: Acute Allergies/Procedures Done in Hospital Allergies No Known Allergies Allergy (Verified 04/16/21 10:44) Type of Care/Length of Stay Estimated LOS: Convalescent Care Less Than 30 days Type of Care Needed: Skilled Rehab Potential: Good Prognosis: Good Additional Orders/Day of Discharge Day of Discharge: 11/28/21 Dietary and Speech Recommendations Dietitian Recommendations/Changes: regular general diet appropriate with addition of Ensure Enlive at L and D Discharge Plan Admission Admit Date/Time: 11/27/21 01:31 Primary Reason for Your Visit: renal failure. Attending Provider: Rogers Mac Primary Care Provider: Sharona Ramos NP Discharge Orders/Prescriptions Prescriptions: New amoxicillin 500 mg capsule 500 mg PO BID Qty: 20 RF: 0 Continued pravastatin 40 mg tablet 40 mg PO QHS RF: 0 aspirin [Aspirin Low Dose] 81 mg Tablet,Delayed Release (Dr/Ec) 81 mg PO DAILY RF: 0 Hold Instructions: Resume on 04/30/21. acetaminophen 500 mg Tablet 500 mg PO DAILY RF: 0 tamsulosin 0.4 mg capsule 0.4 mg PO DAILY RF: 0 diphenhydramine HCl [Benadryl Allergy] 25 mg Tablet 25 mg PO Q6H PRN (Reason: ALLERGIES) RF: 0 niacin 500 mg Tablet 1,000 mg PO DAILY RF: 0 magnesium 250 mg Tablet 250 mg PO DAILY RF: 0 metoprolol succinate 25 mg tablet extended release 24 hr 25 mg PO DAILY RF: 0 diphenhydramine-acetaminophen [Acetaminophen PM] 25-500 mg Tablet 2 tab PO QHS RF: 0 saw palmetto 450 mg Capsule 450 mg PO DAILY RF: 0 PreserVision AREDS [id number] Capsule 1 cap PO DAILY RF: 0 fish,saf,flx,brg oils-O3,6,9#2 [phone] mg Capsule 1 cap PO DAILY RF: 0 dutasteride-tamsulosin 0.5-0.4 mg capsule, ER multiphase 24 hr 1 cap PO DAILY RF: 0 turmeric 400 mg Capsule 1,000 mg PO DAILY RF: 0 Glucosamine Chondroitin 550-30-1 mg Capsule 2 cap PO DAILY RF: 0 Restless Leg Relief 2 tab PO/SL QHS RF: 0 ciprofloxacin HCl [Cipro] 500 mg tablet 500 mg PO BID Qty: 14 RF: 0 Referrals / Follow Up: Rogers Mac MD [STAFF PHYSICIAN] - Sharona Ramos NP, FORENSIC MATERIALS ENGINEER-C [Primary Care Provider] - Disposition Discharge Orders: Discharge Patient (Routine); Ordered 11/28/21 Ordered By: Dr. Rogers Mac
[2021-11-28] MEDS: Potassium Chloride Oral Tablet 20 MEQ 40 MEQ PO (17:24)
--- NOTE | 2021-11-28 17:43 | CASEMGMT ---
Social Work SW met with pt and dgt in room and introduced self and role of SW. Pt lives home alone. Therapy stating pt was very unsteady and unsafe during therapy. SW discussed SNF placement. Pt is resistant but pt dgt is in agreement. After much discussion about care needs and SNF palcement pt is agreeable to short term SNF. List of SNF providers including quality and resource use data and i network with facility provided to pt and dgt. [facility]. Phone call to [facility] and they do have beds available but will not take weekend admissions. Referral faxed. SW to followup on Wednesday. Dr. Madrigal updated. ANDREA Cardenas
[2021-11-28 20:57] VITALS: BP 155/72; PULSE 87; RESP 18; TEMP 36.9; O2SAT 100
--- NOTE | 2021-11-28 21:09 | NURSING ---
pt moved to room 206 for safety. pt very unsteady and has set off his alarm forgets to call staff. pt notified of reason for move and dtr eliz called and notified. pt dtr appreciative. pt watching tv, bed exit on
[2021-11-28] MEDS: Pravastatin 40 MG Tablet PO (21:21)
[2021-11-28] MEDS: DiphenhydrAMINE 25 MG Capsule 50 MG PO (23:38)
[2021-11-28] MEDS: 0.9% Normal Saline 1,000 ML 50 ML IV ×2 (23:39)
[2021-11-29 01:06] VITALS: BP 168/82; PULSE 102; RESP 18; TEMP 36.8; O2SAT 100
[2021-11-29] MEDS: Haloperidol Lactate 5 MG/ML Vial 2 MG IM (02:22)
[2021-11-29] MEDS: Ceftriaxone 1 GM/50 ML BAG IV (11:44)
[2021-11-29] MEDS: Acetaminophen 500 MG Tablet 1000 MG PO ×2 (12:26→21:03)
[2021-11-29 12:27] VITALS: PULSE 82
[2021-11-29] MEDS: Metoprolol(XL)Succ 25 MG Tablet PO (12:27)
[2021-11-29] MEDS: Aspirin E.C. 81 MG Tablet PO (12:28)
--- NOTE | 2021-11-29 13:47 | PN.HOSP_ITS ---
Documented by User: Price JAQUEZ 11/29/21 14:03 Subjective Subjective Patient is an 86-year-old male comfortably resting in bed, alert and orient x3. Patient denies any current complaints and does not appear in acute distress. Objective Data Objective Data Vital Signs: Vital Signs Temp Pulse Resp BP Pulse Ox 98.2 F 82 18 168/82 H 100 11/29/21 01:06 11/29/21 12:27 11/29/21 01:06 11/29/21 01:06 11/29/21 01:06 Oxygen Delivery Method Room Air Weight: 148 lb 12.992 oz Body Mass Index (BMI) 20.7 Intake & Output: Intake and Output for Last 24 Hours 11/27/21 11/28/21 11/29/21 23:59 23:59 23:59 Intake Total 2100 / 2100 1270 / 1270 50 / 50 Output Total 3600 / 3600 1650 / 1650 Balance -1500 / -1500 -380 / -380 50 / 50 Medical Nutrition Assessment Dietitian: Malnutrition Criteria Met Start: 11/27/21 15:18 Freq: Status: Active Protocol: Document 11/27/21 15:19 [facility] (Rec: 11/27/21 15:20 [facility] [id number]) Nutrition Malnutrition Evidence of Malnutrition Exists Yes Malnutrition (severe): Acute Illness/Injury Evidenced By Suboptimal Energy Intake ( Severe),Weight Loss (Severe) Clinical Problem Acute Disease or Injury Related Malnutrition Etiology severe acute malnutrition related to inadequate energy intake w/ current UTI, urine retention, charted stopped self catherization possible contributing to mental status change/ confusion Signs/Symptoms as evidenced by unintentional weight loss of 5%/ 8# weight loss for reported UBW 157# x 1 wk; < 50% of estimated nutrition needs x 1 wks Status Active Problem Recommendation Dietitian Recommendations/Changes regular general diet appropriate with addition of Ensure Enlive at L and D Lab / Micro Data Result Diagrams: 11/29/21 10:06 11/29/21 10:06 Micro: Microbiology 11/27/21 03:10 Urine Catheter - Black Urine Culture - Final Enterococcus faecalis Physical Exam Const alert, oriented x3 and no apparent distress HEENT head/scalp atraumatic and moist oral mucous membranes Head and Scalp: normocephalic Eyes Eyes Narrative: Blepharitis about the eyes bilaterally Neck no lymphadenopathy and supple Resp normal respiratory effort, no use of accessory muscles and clear to auscultation bilaterally Cardio regular rate, regular rhythm and no murmurs GI normal to inspection, nondistended, normoactive bowel sounds, soft to palpation and non-tender Extremity normal to inspection, full ROM and no clubbing, cyanosis or edema Skin no rashes or lesions noted, no wounds and skin turgor normal Neuro CN's II-XII intact bilaterally Psych affect normal Assessment & Plan Assessment/Plan (1) Agitation due to dementia: PLAN: Patient is an 86-year-old male who presents to the hospital medicine service on consult from Dr. Mac for evaluation and management of agitation. 1) agitation with dementia Patient was observed being agitated and was violent with nursing staff overnight. Patient's daughter was contacted, and she informed this provider that this is not uncommon for her father and that he has done this at prior hospital admissions. Patient's daughter states that patient gets this way when he gets home sick and that this is made worse by his ongoing dementia. Patient agitation has currently resolved and he is without any complaints, vital signs are stable and patient is afebrile. CBC from 11/28 does demonstrate a leukocytosis, although patient is on appropriate antibiotics for UTI. Repeat CBC and BMP are currently being drawn and patient will be observed overnight for agitation, trazodone ordered nightly, as well as as needed Ativan. 2) bilateral hydronephrosis with urinary retention with concomitant UTI Management per urology. Patient on Rocephin. 3) acute renal failure Management per urology. Creatinine from 2.4, down from admission. Repeat BMP pending. Patient seen by Price Barraza PA-C, under the supervision of Dr. Craft. Time spent on patient care: 9 minutes. Documented by User: Dr. Tra Craft MD 11/29/21 17:10 Objective Data Lab / Micro Data Result Diagrams: 11/29/21 10:11/29/21 10:06 Charges/Coding Addendum Addendum: Dr. Craft: I personally reviewed the chart and examined the patient, and agree with the above findings. Reji is an 86-year-old male who presented to the hospital for altered mental status secondary to a UTI with an outlet obstruction. He was transferred from an outside hospital secondary to the need for urologic intervention. He had a Black placed and started on antibiotics. He did have an JONES on admission with a creatinine of 2.44, he is now down to 1.14. Was c omplicating his case is delirium. His family states that this happens every time he comes to the hospital and he is awaiting discharge to SNF. He has been extremely belligerent and aggressive has had multiple staff members, Haldol had been attempted which had led to the ability to for some interventions to be done. We will try him on trazodone tonight and see if that helps otherwise he may need to be on a low-dose Seroquel. Urine culture has a pansensitive Enterococcus faecalis, and place him on p.o. Cipro as he seems like he might feel bit more compliant with patients. Clinical time spent: 20 minutes Visit Charges Inpatient E&M: 25607 Subs Hosp L2
--- NOTE | 2021-11-29 13:53 | PCM.CONS.B ---
Consult Date of Consult: 11/29/21 86-year-old male who was doing better he was going to go home yesterday but that we could not find a SNF bed for him overnight became delirious needed Haldol I consulted the medical service to see if they can assist with his medical delirium he has been pulling agitated kicking trifle's catheter out so not sure if he is really ready to go for SNF yet awaiting from consultation from the medical service to see how we can help with his delirium we will update his CBC and a BMP. We will follow his cultures and treat him accordingly. Creatinine is getting better
[2021-11-29 13:56] LABS: Absolute Lymphocyte Count 0.74 X10^3/uL (0.83-4.51); Absolute Neutrophil Count 12.1 X10^3/uL (2.0-7.7); Basophil# 0.05 X10^3/uL; Basophil% 0.4 % (0-1); Eosinophil# 0.05 X10^3/uL; Eosinophils% 0.4 % (0-5); Hematocrit 32.5 % (40-54); Hemoglobin 10.6 g/dL (13.0-16.5); Lymphocyte # 0.74 X10^3/ul (0.83-4.51); Lymphocyte % 5.3 % (19-41); Mean Corp Hgb Conc 32.6 g/dL (32-36); Mean Corpuscular Hgb 30.5 pg (27.0-32.0); Mean Corpuscular Volume 93.4 fL (80-94); Mean Platelet Vol. 10.3 fl (6.2-12.0); Monocyte# 0.57 X10^3/uL; Monocyte% 4.1 % (0-10); NRBC Flagged by Analyzer 0 % (0-5); Neutrophil # 12.05 X10^3/uL (2.7-7.7); Neutrophil % 86.8 % (47-70); Platelet Count 214 K/mm3 (150-450); RBC Distribution Width CV 13.8 % (11.6-14.6); RBC Distribution Width SD 47.1 fl (35.1-43.9); Red Blood Count 3.48 M/mm3 (4.6-6.2); White Blood Count 13.9 K/mm3 (4.4-11.0)
[2021-11-29 14:14] VITALS: BP 127/53; PULSE 85; RESP 16; TEMP 36.6; O2SAT 93
[2021-11-29 14:16] LABS: Anion Gap 7 (5-15); BUN 36 mg/dL (7-18); BUN/Creat Ratio 31.6 RATIO (10-20); Calcium,Total 8.6 mg/dL (8.5-10.1); Chloride 114 mmol/L (98-107); Creatinine, Serum 1.14 mg/dL (0.70-1.30); EST Glomerular Filtration Rate 65 mL/min (>60); Est Glom Filt Rate - Afr Amer 79 mL/min (>60); Estimated Creatinine Clearance 46.05 ml/min; Glucose 134 mg/dL (74-106); Potassium 3.5 mmol/L (3.5-5.1); Sodium Level 147 mmol/L (136-145)
[2021-11-29] MEDS: AMOXICILLIN 500 MG CAPSULE PO ×2 (14:48→21:01)
[2021-11-29] MEDS: Glycerin/Hypromellose/PEG400 15 ml Bottle 1 DRP EACH EYE (14:52)
[2021-11-29] MEDS: 0.9% Normal Saline 1,000 ML 50 ML IV (19:42)
[2021-11-29 20:16] VITALS: BP 152/70; PULSE 70; RESP 16; TEMP 37.1; O2SAT 92
[2021-11-29] MEDS: Menthol/Lanolin/Calamine/Znox 113 GM Tube 1 APPLIC TOPICAL (21:02)
[2021-11-29] MEDS: Pravastatin 40 MG Tablet PO (21:03)
[2021-11-29] MEDS: traZODone 50 MG Tablet PO (21:03)
[2021-11-30 02:16] VITALS: BP 156/89; PULSE 82; RESP 16; TEMP 36.9; O2SAT 95
[2021-11-30] MEDS: Acetaminophen 500 MG Tablet 1000 MG PO ×2 (10:45→20:39)
[2021-11-30] MEDS: Aspirin E.C. 81 MG Tablet PO (10:45)
[2021-11-30] MEDS: AMOXICILLIN 500 MG CAPSULE PO ×2 (10:45→20:40)
[2021-11-30 10:46] VITALS: PULSE 89
[2021-11-30] MEDS: Menthol/Lanolin/Calamine/Znox 113 GM Tube 1 APPLIC TOPICAL ×2 (10:46→20:40)
[2021-11-30] MEDS: Metoprolol(XL)Succ 25 MG Tablet PO (10:46)
[2021-11-30 10:48] VITALS: BP 136/82; PULSE 89; RESP 16; TEMP 36.8; O2SAT 99
--- NOTE | 2021-11-30 12:24 | PCM.PN.HOSP ---
Documented by User: Price JAQUEZ 11/30/21 12:34 Subjective Subjective Patient is an 86-year-old male comfortably resting in bed, alert and orient x3. According to nurses patient was mildly agitated at being awoken this morning, has not had any violent outbursts relative to yesterday. Patient was asleep comfortably in bed at time of my evaluation and did not appear in acute distress. Objective Data Objective Data Vital Signs: Vital Signs Temp Pulse Resp BP Pulse Ox 98.3 F 89 16 136/82 H 99 11/30/21 10:48 11/30/21 10:48 11/30/21 10:48 11/30/21 10:48 11/30/21 10:48 Oxygen Delivery Method Room Air Weight: 148 lb 12.992 oz Body Mass Index (BMI) 20.7 Intake & Output: Intake and Output for Last 24 Hours 11/28/21 11/29/21 11/30/21 23:59 23:59 23:59 Intake Total 1270 / 1270 1999 / 1999 1380 / 1380 Output Total 1650 / 1650 1200 / 1200 825 / 825 Balance -380 / -380 800 / 800 555 / 555 Medical Nutrition Assessment Dietitian: Malnutrition Criteria Met Start: 11/27/21 15:18 Freq: Status: Active Protocol: Document 11/27/21 15:19 [facility] (Rec: 11/27/21 15:20 [facility] [id number]) Nutrition Malnutrition Evidence of Malnutrition Exists Yes Malnutrition (severe): Acute Illness/Injury Evidenced By Suboptimal Energy Intake ( Severe),Weight Loss (Severe) Clinical Problem Acute Disease or Injury Related Malnutrition Etiology severe acute malnutrition related to inadequate energy intake w/ current UTI, urine retention, charted stopped self catherization possible contributing to mental status change/ confusion Signs/Symptoms as evidenced by unintentional weight loss of 5%/ 8# weight loss for reported UBW 157# x 1 wk; < 50% of estimated nutrition needs x 1 wks Status Active Problem Recommendation Dietitian Recommendations/Changes regular general diet appropriate with addition of Ensure Enlive at L and D Lab / Micro Data Result Diagrams: 11/29/21 10:06 11/29/21 10:06 Labs: Laboratory Results - last 24 hr 11/29/21 10:06: WBC 13.9 H, RBC 3.48 L, Hgb 10.6 L, Hct 32.5 L, MCV 93.4, MCH 30.5, MCHC 32.6, RDW Std Deviation 47.1 H, RDW Coeff of Carlos 13.8, Plt Count 214, MPV 10.3, Immature Gran % (Auto) 3.000 H, Neut % (Auto) 86.8 H, Lymph % (Auto) 5.3 L, Bladen % (Auto) 4.1, Eos % (Auto) 0.4, Baso % (Auto) 0.4, Absolute Neuts (auto) 12.1 H, Absolute Lymphs (auto) 0.74 L, Nucleated RBC % 0 11/29/21 10:06: Sodium 147 H, Potassium 3.5, Chloride 114 H, Carbon Dioxide 26.0, Anion Gap 7, BUN 36 H, Creatinine 1.14, Estim Creat Clear Calc 46.05, Est GFR (MDRD) Af Amer 79, Est GFR (MDRD) Non-Af 65, BUN/Creatinine Ratio 31.6 H, Glucose 134 H, Calcium 8.6 Micro: Microbiology 11/27/21 03:10 Urine Catheter - Black Urine Culture - Final Enterococcus faecalis Physical Exam Const no apparent distress Constitutional Narrative: Patient comfortably sleeping in bed at time of evaluation. HEENT head/scalp atraumatic and moist oral mucous membranes Head and Scalp: normocephalic Eyes PERRL, EOMs intact bilaterally and conjunctivae normal Neck no lymphadenopathy, supple and no JVD Resp normal respiratory effort, no retractions and no use of accessory muscles Cardio regular rate, regular rhythm, no murmurs and no JVD GI normal to inspection, nondistended, normoactive bowel sounds, soft to palpation and non-tender Extremity normal to inspection, full ROM and no clubbing, cyanosis or edema Skin no rashes or lesions noted, no wounds and skin turgor normal Neuro CN's II-XII intact bilaterally Psych affect normal Assessment & Plan Assessment/Plan (1) Agitation due to dementia: PLAN: Patient is an 86-year-old male who presents to the hospital medicine service on consult from Dr. Mac for evaluation and management of agitation. 1) agitation with dementia According to nursing staff, patient did have some mild agitation with being awoken during obtaining of vital signs. Overall presentation, according to nursing staff, appears improved from yesterday. At time of my evaluation, patient was sleeping comfortably in bed and did not appear in acute distress. Did not awaken given agitated episodes from earlier. Vital signs have remained stable overnight and patient is afebrile. CBC shows improvement of leukocytosis secondary to UTI. Continue trazodone and as needed Ativan. We will continue to monitor. 2) hyponatremia Sodium is currently 147. Unclear etiology at this time, continue to monitor BMP. 3) bilateral hydronephrosis with urinary retention with concomitant UTI Management per urology. Patient on Rocephin. 4) acute renal failure Management per urology. Creatinine from 2.4, down from admission. Repeat BMP pending. Patient seen by Price Barraza PA-C, under the supervision of Dr. Sky. Time spent on patient care: 7 minutes. Documented by User: Dr. En Sky, 11/30/21 13:11 Objective Data Lab / Micro Data Result Diagrams: 11/29/21 10:06 11/29/21 10:06 Charges/Coding Addendum Addendum: Patient was seen and examined today independently of Price Barraza, patient is resting quietly at time of my examination, he remains confused but he is not combative or agitated. Patient denies any pain or distress. On examination he appeared his stated age, he had confusion. Vital signs as documented. Skin warm and dry and without overt rashes. Neck without JVD, neck was supple, trachea midline, thyroid was normal. Lungs clear bilaterally, normal air movement was noted. Heart exam notable for regular rhythm, normal sounds and absence of murmurs, rubs or gallops. Abdomen unremarkable and without evidence of organomegaly, masses, or abdominal aortic enlargement. Bowel sounds are present, abdomen is not distended. Extremities nonedematous, no cyanosis was noted, no clubbing was noted. Neuro: Cranial nerves II through XII are grossly intact, no focal motor deficits were noted, sensation to light touch and pinprick intact, motor exam 5/5 throughout. Psych: Patient is alert, he is confused, he does not appear agitated Impression: #1 dementia with behavioral disturbances-at this time, patient does not aggressive or agitated with nursing staff, patient will remain on his current medications #2 bilateral hydronephrosis with urinary retention-continue care per urology #3 acute renal failure/acute kidney injury secondary to urinary retention-patient's creatinine was 1.14 today #4 severe caloric and protein malnutrition-related to inadequate energy intake as evidenced by unintentional weight loss of 5% and less than 50% of estimated nutritional intake x1 week-continue with regular general diet with the addition of Ensure Enlive 5. Enterococcus bacteremia-patient is currently on amoxicillin #6 hyperlipidemia-patient is presently on a statin I have reviewed Price Barraza's progress note including his medical assessment and plan of care and endorse it with the above additions. Total time spent my progress note including examination was 20 minutes.
[2021-11-30] MEDS: Glycerin/Hypromellose/PEG400 15 ml Bottle 1 DRP EACH EYE (17:51)
[2021-11-30 19:50] VITALS: PULSE 89; RESP 16
[2021-11-30 20:09] VITALS: BP 134/62; PULSE 89; RESP 16; TEMP 36.4; O2SAT 98
[2021-11-30] MEDS: traZODone 50 MG Tablet PO (20:39)
[2021-11-30] MEDS: Pravastatin 40 MG Tablet PO (20:40)
[2021-12-01 02:09] VITALS: BP 160/70; PULSE 80; RESP 16; TEMP 36.7; O2SAT 100
[2021-12-01 06:17] LABS: Absolute Lymphocyte Count 1.25 X10^3/uL (0.83-4.51); Absolute Neutrophil Count 18.5 X10^3/uL (2.0-7.7); Basophil# 0.08 X10^3/uL; Basophil% 0.4 % (0-1); Eosinophil# 0.15 X10^3/uL; Eosinophils% 0.7 % (0-5); Hematocrit 32.9 % (40-54); Hemoglobin 10.4 g/dL (13.0-16.5); Lymphocyte # 1.25 X10^3/ul (0.83-4.51); Lymphocyte % 5.7 % (19-41); Mean Corp Hgb Conc 31.6 g/dL (32-36); Mean Corpuscular Hgb 29.5 pg (27.0-32.0); Mean Corpuscular Volume 93.5 fL (80-94); Mean Platelet Vol. 10.4 fl (6.2-12.0); Monocyte# 1.11 X10^3/uL; NRBC Flagged by Analyzer 0 % (0-5); Neutrophil # 18.48 X10^3/uL (2.7-7.7); Neutrophil % 83.6 % (47-70); Platelet Count 234 K/mm3 (150-450); RBC Distribution Width CV 13.7 % (11.6-14.6); RBC Distribution Width SD 46.9 fl (35.1-43.9); Red Blood Count 3.52 M/mm3 (4.6-6.2); White Blood Count 22.1 K/mm3 (4.4-11.0)
[2021-12-01 06:44] LABS: Anion Gap 6 (5-15); BUN 28 mg/dL (7-18); BUN/Creat Ratio 30.9 RATIO (10-20); Calcium,Total 8.6 mg/dL (8.5-10.1); Chloride 105 mmol/L (98-107); Creatinine, Serum 0.91 mg/dL (0.70-1.30); EST Glomerular Filtration Rate 85 mL/min (>60); Est Glom Filt Rate - Afr Amer 102 mL/min (>60); Estimated Creatinine Clearance 57.69 ml/min; Glucose 154 mg/dL (74-106); Potassium 3.8 mmol/L (3.5-5.1); Sodium Level 140 mmol/L (136-145)
[2021-12-01 08:41] VITALS: BP 144/65; PULSE 87; RESP 18; TEMP 36.6; O2SAT 100
[2021-12-01] MEDS: 0.9% Normal Saline 1,000 ML 50 ML IV (08:54)
[2021-12-01] MEDS: AMOXICILLIN 500 MG CAPSULE PO (08:55)
[2021-12-01 08:56] VITALS: PULSE 87
[2021-12-01] MEDS: Menthol/Lanolin/Calamine/Znox 113 GM Tube 1 APPLIC TOPICAL (08:56)
[2021-12-01] MEDS: Metoprolol(XL)Succ 25 MG Tablet PO (08:56)
[2021-12-01] MEDS: Acetaminophen 500 MG Tablet 1000 MG PO (08:56)
[2021-12-01] MEDS: Aspirin E.C. 81 MG Tablet PO (08:56)
--- NOTE | 2021-12-01 10:21 | PCM.TXEXTCAR ---
Documented by User: Price JAQUEZ 12/01/21 10:27 Diet 11/27/21 07:52 Diet: Regular - General Food consistency:: Regular Liquid Consistency:: Regular/Thin Type of Dietary Supplement:: Ensure Enlive Is pt able to select menu?: Yes Diet Comments: 8 oz at L and D - vary flavors Wound(s) Bilateral Elbows: Wound Type: Abrasion Bilateral Knees: Wound Type: Abrasion Bilateral shins: Wound Type: scabs left hand: Wound Type: Skin Tear Therapies Weight Bearing: Partial weight bearing Physical Therapy: Eval and Treat Occupational Therapy: Eval and Treat Problem/Diagnosis (1) Agitation due to dementia: Status: Acute Allergies/Procedures Done in Hospital Allergies No Known Allergies Allergy (Verified 04/16/21 10:44) Type of Care/Length of Stay Estimated LOS: Convalescent Care Less Than 30 days Type of Care Needed: Skilled Rehab Potential: Good Prognosis: Good Additional Orders/Day of Discharge Day of Discharge: 12/01/21 Dietary and Speech Recommendations Dietitian Recommendations/Changes: regular general diet appropriate with addition of Ensure Enlive at L and D Discharge Plan Admission Admit Date/Time: 11/27/21 01:31 Primary Reason for Your Visit: renal failure. Attending Provider: En Sky Primary Care Provider: Sharona Ramos NP Consulting Providers: Tra Craft Instructions Additional Instructions / Restrictions: * maintain smith catheter in place. Discharge Orders/Prescriptions Prescriptions: New amoxicillin 500 mg capsule 500 mg PO TID Qty: 21 RF: 0 Continued pravastatin 40 mg tablet 40 mg PO QHS RF: 0 aspirin [Aspirin Low Dose] 81 mg Tablet,Delayed Release (Dr/Ec) 81 mg PO DAILY RF: 0 Hold Instructions: Resume on 04/30/21. acetaminophen 500 mg Tablet 500 mg PO DAILY RF: 0 tamsulosin 0.4 mg capsule 0.4 mg PO DAILY RF: 0 diphenhydramine HCl [Benadryl Allergy] 25 mg Tablet 25 mg PO Q6H PRN (Reason: ALLERGIES) RF: 0 niacin 500 mg Tablet 1,000 mg PO DAILY RF: 0 magnesium 250 mg Tablet 250 mg PO DAILY RF: 0 metoprolol succinate 25 mg tablet extended release 24 hr 25 mg PO DAILY RF: 0 diphenhydramine-acetaminophen [Acetaminophen PM] 25-500 mg Tablet 2 tab PO QHS RF: 0 saw palmetto 450 mg Capsule 450 mg PO DAILY RF: 0 PreserVision AREDS [id number] Capsule 1 cap PO DAILY RF: 0 fish,saf,flx,brg oils-O3,6,9#2 [id number] mg Capsule 1 cap PO DAILY RF: 0 dutasteride-tamsulosin 0.5-0.4 mg capsule, ER multiphase 24 hr 1 cap PO DAILY RF: 0 turmeric 400 mg Capsule 1,000 mg PO DAILY RF: 0 Glucosamine Chondroitin 550-30-1 mg Capsule 2 cap PO DAILY RF: 0 Restless Leg Relief 2 tab PO/SL QHS RF: 0 ciprofloxacin HCl [Cipro] 500 mg tablet 500 mg PO BID Qty: 14 RF: 0 Referrals / Follow Up: Rogers Mac MD [STAFF PHYSICIAN] - Within 2 Weeks Sharona Ramos NP, TIRE MOLDER-C [Primary Care Provider] - Within 2 Weeks Disposition Disposition (needs filled in before D/C Order can be placed): Residential Facility Documented by User: Dr. En Sky DO 12/01/21 11:02 Allergies/Procedures Done in Hospital Allergies No Known Allergies Allergy (Verified 04/16/21 10:44) Discharge Plan Admission Admit Date/Time: 11/27/21 01:31 Primary Reason for Your Visit: renal failure. Attending Provider: En Sky Primary Care Provider: Sharona Ramos NP Consulting Providers: Tra Craft Instructions Additional Instructions / Restrictions: * maintain smith catheter in place. Discharge Orders/Prescriptions Prescriptions: New amoxicillin 500 mg capsule 500 mg PO TID Qty: 21 RF: 0 Continued pravastatin 40 mg tablet 40 mg PO QHS RF: 0 aspirin [Aspirin Low Dose] 81 mg Tablet,Delayed Release (Dr/Ec) 81 mg PO DAILY RF: 0 Hold Instructions: Resume on 04/30/21. acetaminophen 500 mg Tablet 500 mg PO DAILY RF: 0 tamsulosin 0.4 mg capsule 0.4 mg PO DAILY RF: 0 diphenhydramine HCl [Benadryl Allergy] 25 mg Tablet 25 mg PO Q6H PRN (Reason: ALLERGIES) RF: 0 niacin 500 mg Tablet 1,000 mg PO DAILY RF: 0 magnesium 250 mg Tablet 250 mg PO DAILY RF: 0 metoprolol succinate 25 mg tablet extended release 24 hr 25 mg PO DAILY RF: 0 diphenhydramine-acetaminophen [Acetaminophen PM] 25-500 mg Tablet 2 tab PO QHS RF: 0 saw palmetto 450 mg Capsule 450 mg PO DAILY RF: 0 PreserVision AREDS [id number] Capsule 1 cap PO DAILY RF: 0 fish,saf,flx,brg oils-O3,6,9#2 [id number] mg Capsule 1 cap PO DAILY RF: 0 dutasteride-tamsulosin 0.5-0.4 mg capsule, ER multiphase 24 hr 1 cap PO DAILY RF: 0 turmeric 400 mg Capsule 1,000 mg PO DAILY RF: 0 Glucosamine Chondroitin 550-30-1 mg Capsule 2 cap PO DAILY RF: 0 Restless Leg Relief 2 tab PO/SL QHS RF: 0 ciprofloxacin HCl [Cipro] 500 mg tablet 500 mg PO BID Qty: 14 RF: 0 Referrals / Follow Up: Rogers Mac MD [STAFF PHYSICIAN] - Within 2 Weeks Sharona Ramos NP, TIRE MOLDER-C [Primary Care Provider] - Within 2 Weeks Disposition Disposition (needs filled in before D/C Order can be placed): Residential Facility
--- NOTE | 2021-12-01 10:46 | CASEMGMT ---
Social Work Pt is ready for discharge today. DARIN spoke with Radha at [facility] and they are able to accept pt today. SW placed call to pt dgt Therese and informed that pt is ready for discharge and she is agreeable to discharge and would like transportation arranged with [facility]. 7000 Convalesecent form completed in [employer] system. Orders faxed to [facility] and transportation arranged with [facility] for 1300 Pickup by cot. Pt dgt, [facility] and nursing updated on discharge time. Plan: Rebecca Carrera, skilled level of care under convalescent stay ANDREA Metcalf
--- NOTE | 2021-12-01 11:36 | PN.HOSP_ITS ---
Documented by User: Price JAQUEZ 12/01/21 11:46 Subjective Subjective Patient is an 86-year-old male comfortably resting in bed, alert and orient x3. Denies development of any new symptoms overnight. Does not appear in acute distress. Objective Data Objective Data Vital Signs: Vital Signs Temp Pulse Resp BP Pulse Ox 97.9 F 87 18 144/65 H 100 12/01/21 08:41 12/01/21 08:56 12/01/21 08:41 12/01/21 08:41 12/01/21 08:41 Oxygen Delivery Method Room Air Weight: 148 lb 12.992 oz Body Mass Index (BMI) 20.7 Intake & Output: Intake and Output for Last 24 Hours 11/29/21 11/30/21 12/01/21 23:59 23:59 23:59 Intake Total 1999 / 1999 2380 / 2380 240 / 240 Output Total 1200 / 1200 2175 / 2175 1850 / 1850 Balance 800 / 800 205 / 205 -1610 / -1610 Medical Nutrition Assessment Dietitian: Malnutrition Criteria Met Start: 11/27/21 15:18 Freq: Status: Active Protocol: Document 11/27/21 15:19 [facility] (Rec: 11/27/21 15:20 [facility] [id number]) Nutrition Malnutrition Evidence of Malnutrition Exists Yes Malnutrition (severe): Acute Illness/Injury Evidenced By Suboptimal Energy Intake ( Severe),Weight Loss (Severe) Clinical Problem Acute Disease or Injury Related Malnutrition Etiology severe acute malnutrition related to inadequate energy intake w/ current UTI, urine retention, charted stopped self catherization possible contributing to mental status change/ confusion Signs/Symptoms as evidenced by unintentional weight loss of 5%/ 8# weight loss for reported UBW 157# x 1 wk; < 50% of estimated nutrition needs x 1 wks Status Active Problem Recommendation Dietitian Recommendations/Changes regular general diet appropriate with addition of Ensure Enlive at L and D Lab / Micro Data Result Diagrams: 12/01/21 05:12 12/01/21 05:12 Labs: Laboratory Results - last 24 hr 12/01/21 05:12: WBC 22.1 H, RBC 3.52 L, Hgb 10.4 L, Hct 32.9 L, MCV 93.5, MCH 29.5, MCHC 31.6 L, RDW Std Deviation 46.9 H, RDW Coeff of Carlos 13.7, Plt Count 234, MPV 10.4, Immature Gran % (Auto) 4.600 H, Neut % (Auto) 83.6 H, Lymph % (Auto) 5.7 L, Mccormick % (Auto) 5.0, Eos % (Auto) 0.7, Baso % (Auto) 0.4, Absolute Neuts (auto) 18.5 H, Absolute Lymphs (auto) 1.25, Nucleated RBC % 0 12/01/21 05:12: Sodium 140, Potassium 3.8, Chloride 105, Carbon Dioxide 29.0, Anion Gap 6, BUN 28 H, Creatinine 0.91, Estim Creat Clear Calc 57.69, Est GFR (MDRD) Af Amer 102, Est GFR (MDRD) Non-Af 85, BUN/Creatinine Ratio 30.9 H, Glucose 154 H, Calcium 8.6 Micro: Microbiology 12/01/21 10:35 Nasal Secretion SARS-CoV-2 Antigen (Rapid) - Final 11/27/21 03:10 Urine Catheter - Black Urine Culture - Final Enterococcus faecalis Physical Exam Const alert, oriented x3 and no apparent distress HEENT head/scalp atraumatic and moist oral mucous membranes Head and Scalp: normocephalic Eyes PERRL, EOMs intact bilaterally and conjunctivae normal Neck no lymphadenopathy, supple and no JVD Resp normal respiratory effort, no retractions, no use of accessory muscles and clear to auscultation bilaterally Cardio regular rate, regular rhythm, no murmurs and no JVD GI normal to inspection, nondistended, normoactive bowel sounds, soft to palpation and non-tender Extremity normal to inspection, full ROM and no clubbing, cyanosis or edema Skin no rashes or lesions noted, no wounds and skin turgor normal Neuro CN's II-XII intact bilaterally Psych affect normal Assessment & Plan Assessment/Plan (1) Agitation due to dementia: PLAN: Patient is an 86-year-old male who presents to the hospital medicine service on consult from Dr. Mac for evaluation and management of agitation. 1) Sundowners Overall presentation is improved from first day on consult. Patient has had return of his agitation, although this presentation appears consistent with s undowners, related to patient's dementia. Patient family reports that this is consistent for patient at prior hospital admissions. Vital signs have remained stable overnight and patient is afebrile. CBC does show a leukocytosis with WBCs at 22,000. Unclear etiology of patient's leukocytosis as the rest of his presentation is stable, is not on any steroids, surgery was several days ago and medical history was noncontributory. Did increase patient's amoxicillin from twice daily to 3 times daily on discharge. Patient cleared for discharge from hospital medicine perspective. 2) hypernatremia Resolved, sodium currently 140. 3) bilateral hydronephrosis with urinary retention with concomitant UTI Management per urology. Discharged on amoxicillin, increase to 3 times daily. 4) acute renal failure Management per urology. Creatinine from 2.4, down from admission. Repeat BMP pending. Patient seen by Price Barraza PA-C, under the supervision of Dr. Sky. Time spent on patient care: 7 minutes. Documented by User: Dr. En Sky DO 12/01/21 17:24 Objective Data Lab / Micro Data Result Diagrams: 12/01/21 05:12 12/01/21 05:12 Charges/Coding Addendum Addendum: Patient was seen and examined independently of Price Barraza, he appears agitated at times but this morning was calm during the time my examination. Patient's white blood cell count was elevated today, he will be discharged to an extended care facility on oral antibiotics and this will need to be rechecked. I talked briefly with Dr. Mac about the patient's discharge today Physical Exam Const no apparent distress Constitutional Narrative: Patient comfortably sitting in a chair at the time of my examination HEENT head/scalp atraumatic and moist oral mucous membranes Head and Scalp: normocephalic Eyes PERRL, EOMs intact bilaterally and conjunctivae normal Neck no lymphadenopathy, supple and no JVD Resp normal respiratory effort, no retractions and no use of accessory muscles Cardio regular rate, regular rhythm, no murmurs and no JVD GI normal to inspection, nondistended, normoactive bowel sounds, soft to palpation and non-tender Extremity normal to inspection, full ROM and no clubbing, cyanosis or edema Skin no rashes or lesions noted, no wounds and skin turgor normal Neuro CN's II-XII intact bilaterally Psych Patient confused but not agitated Assessment: #1 dementia with behavioral disturbances-at this time, patient does not aggressive or agitated with nursing staff, patient will remain on his current medications #2 bilateral hydronephrosis with urinary retention-continue care per urology #3 acute renal failure/acute kidney injury secondary to urinary retention- patient's creatinine was 0.91 today #4 severe caloric and protein malnutrition-related to inadequate energy intake as evidenced by unintentional weight loss of 5% and less than 50% of estimated nutritional intake x1 week-continue with regular general diet with the addition of Ensure Enlive 5. Enterococcus bacteremia-patient is currently on amoxicillin #6 hyperlipidemia-patient is presently on a statin Patient appears medically stable for discharge today to a local extended care facility. I have reviewed Price Barraza's progress note including his medical assessment and plan of care and endorse it with the above additions. Total time spent by myself clinically on this patient's care today was 22 minutes. Visit Charges Inpatient E&M: 26820 Subs Hosp L2
--- NOTE | 2021-12-04 07:37 | DS.PCM_ITS ---
Discharge Summary Summary: Providers Date of Admission: 11/27/21 Primary Care Physician: DARNELL HortaC Reason For Visit: JONES Diagnosis Discharge Diagnosis (1) Acute renal failure: Status: Acute Code(s): N17.9 - Acute kidney failure, unspecified (2) Hydronephrosis: Status: Acute Code(s): N13.30 - Unspecified hydronephrosis (3) UTI (urinary tract infection): Status: Acute Code(s): N39.0 - Urinary tract infection, site not specified (4) Confusion: Status: Acute Code(s): R41.0 - Disorientation, unspecified (5) Urinary retention: Status: Acute Code(s): R33.9 - Retention of urine, unspecified Medications at Discharge Home Medications Glucosamine Chondroitin 2 cap PO DAILY 04/14/21 PreserVision AREDS 1 cap PO DAILY 04/14/21 Restless Leg Relief 2 tab PO/SL QHS 04/14/21 acetaminophen 500 mg PO DAILY 04/14/21 aspirin [Aspirin Low Dose] 81 mg PO DAILY 04/14/21 diphenhydramine HCl [Benadryl Allergy] 25 mg PO Q6H PRN 04/14/21 diphenhydramine-acetaminophen [Acetaminophen PM] 2 tab PO QHS 04/14/21 dutasteride-tamsulosin 1 cap PO DAILY 04/14/21 fish,saf,flx,brg oils-O3,6,9#2 1 cap PO DAILY 04/14/21 magnesium 250 mg PO DAILY 04/14/21 metoprolol succinate 25 mg PO DAILY 04/14/21 niacin 1,000 mg PO DAILY 04/14/21 pravastatin 40 mg PO QHS 04/14/21 saw palmetto 450 mg PO DAILY 04/14/21 tamsulosin 0.4 mg PO DAILY 04/14/21 turmeric 1,000 mg PO DAILY 04/14/21 ciprofloxacin HCl [Cipro] 500 mg PO BID #14 tab 04/16/21 amoxicillin 500 mg PO BID #20 cap 11/28/21 Hospital Course Summary of Care Provided Minutes Spent on Discharge: 30 Hospital Course: 86-year-old male who presented to the hospital with acute renal failure urinary tract infection sepsis blood cultures were positive he is now getting better and we can start him on amoxicillin on discharge she is currently on Rocephin grown Enterococcus in the urine Smith catheter was placed for retention of urine he has a history of atonic bladder he developed a urinary tract infection stop self cathing and then developed renal failure and was transferred here for further care he is now improving dramatically but he needs to go to a assisted facility for rehab and improvement before he is safe to go home by himself his daughter was with him today and she is in agreement and he was agreeable to going to a short-term skilled facility. Once we have bed is available he can be discharged. Physical Exam Const alert General Appearance: cooperative HEENT normocephalic, head/scalp atraumatic, EAC's normal and TM's normal bilaterally Eyes PERRL and EOMs intact bilaterally Pupil: sluggish Neck no lymphadenopathy, supple and no JVD General: trachea midline Lymph Lymphatic: no lymphadenopathy noted, lymphedema and lymphadenopathy Resp normal respiratory effort, normal air movement and clear to auscultation bilaterally Cardio regular rate, regular rhythm and peripheral pulses 2+ throughout GI soft to palpation, non-tender and non-distended Extremity normal capillary refill and no clubbing, cyanosis or edema General Extremity: no tenderness to palpation of joints or extremities Skin no rashes or lesions noted General Skin Exam: turgor normal Lesions: no lesions Rashes: no rashes Neuro CN's II-XII intact bilaterally Speech: speech normal Motor Exam: strength 5/5 throughout; Negative for general weakness Psych thought process normal, cooperative and affect normal Appearance: appropriate Medical Records Data Medical Nutrition Assessment Dietitian: Malnutrition Criteria Met Start: 11/27/21 15:18 Freq: Status: Active Protocol: Document 11/27/21 15:19 [facility] (Rec: 11/27/21 15:20 [facility] [id number]) Nutrition Malnutrition Evidence of Malnutrition Exists Yes Malnutrition (severe): Acute Illness/Injury Evidenced By Suboptimal Energy Intake ( Severe),Weight Loss (Severe) Clinical Problem Acute Disease or Injury Related Malnutrition Etiology severe acute malnutrition related to inadequate energy intake w/ current UTI, urine retention, charted stopped self catherization possible contributing to mental status change/ confusion Signs/Symptoms as evidenced by unintentional weight loss of 5%/ 8# weight loss for reported UBW 157# x 1 wk; < 50% of estimated nutrition needs x 1 wks Status Active Problem Recommendation Dietitian Recommendations/Changes regular general diet appropriate with addition of Ensure Enlive at L and D Weight / BMI Weight Weight: 67.5 kg Body Mass Index (BMI) 20.7 ABG / Lab / Microbiology Data Result Diagrams: 11/28/21 06:06 document embedded image 11/28/21 06:06 document embedded image Laboratory:Laboratory Results - last 24 hr 11/28/21 06:06: WBC 16.8 H, RBC 3.52 L, Hgb 10.4 L, Hct 31.8 L, MCV 90.3, MCH 29.5, MCHC 32.7, RDW Std Deviation 44.8 H, RDW Coeff of Carlos 13.6, Plt Count 277, MPV 10.1 11/28/21 06:06: Sodium 147 H, Potassium 3.4 L, Chloride 113 H, Carbon Dioxide 28.0, Anion Gap 6, BUN 63 H, Creatinine 2.44 H, Estim Creat Clear Calc 21.52, Est GFR (MDRD) Af Amer 33 L, Est GFR (MDRD) Non-Af 27 L, BUN/Creatinine Ratio 25.8 H, Glucose 141 H, Calcium 9.2 11/28/21 06:06: Vancomycin Trough 7.2 Microbiology:Microbiology 11/27/21 03:10 Urine Catheter - Smith Urine Culture - Preliminary GPC Poss Enterococcus sp D/C Instructions Discharge Diet: No restrictions Discharge Activity: Return to Normal Activity Weight Bearing Status: Weight bearing as tolerated Catheter: Smith to leg bag and Smith to large bag Drain: Canmer Meaningful Use Info Meaningful Use Diagnoses (Choose all that apply): None applicable Discharge Plan Admission Admit Date/Time: 11/27/21 01:31 Primary Reason for Your Visit: renal failure. Attending Provider: Rogers Mac Primary Care Provider: Sharona Ramos NP Discharge Orders/Prescriptions Prescriptions: New amoxicillin 500 mg capsule 500 mg PO BID Qty: 20 RF: 0 Continued pravastatin 40 mg tablet 40 mg PO QHS RF: 0 aspirin [Aspirin Low Dose] 81 mg Tablet,Delayed Release (Dr/Ec) 81 mg PO DAILY RF: 0 Hold Instructions: Resume on 04/30/21. acetaminophen 500 mg Tablet 500 mg PO DAILY RF: 0 tamsulosin 0.4 mg capsule 0.4 mg PO DAILY RF: 0 diphenhydramine HCl [Benadryl Allergy] 25 mg Tablet 25 mg PO Q6H PRN (Reason: ALLERGIES) RF: 0 niacin 500 mg Tablet 1,000 mg PO DAILY RF: 0 magnesium 250 mg Tablet 250 mg PO DAILY RF: 0 metoprolol succinate 25 mg tablet extended release 24 hr 25 mg PO DAILY RF: 0 diphenhydramine-acetaminophen [Acetaminophen PM] 25-500 mg Tablet 2 tab PO QHS RF: 0 saw palmetto 450 mg Capsule 450 mg PO DAILY RF: 0 PreserVision AREDS [id number] [id number] Capsule 1 cap PO DAILY RF: 0 fish,saf,flx,brg oils-O3,6,9#2 [id number] mg Capsule 1 cap PO DAILY RF: 0 dutasteride-tamsulosin 0.5-0.4 mg capsule, ER multiphase 24 hr 1 cap PO DAILY RF: 0 turmeric 400 mg Capsule 1,000 mg PO DAILY RF: 0 Glucosamine Chondroitin 550-30-1 mg Capsule 2 cap PO DAILY RF: 0 Restless Leg Relief 2 tab PO/SL QHS RF: 0 ciprofloxacin HCl [Cipro] 500 mg tablet 500 mg PO BID Qty: 14 RF: 0 Referrals / Follow Up: Rogers Mac MD [STAFF PHYSICIAN] - Sharona Ramos NP, UNDERWRITING ACCOUNT REPRESENTATIVE-C [Primary Care Provider] - Disposition Discharge Orders: Discharge Patient (Routine); Ordered 11/28/21 Ordered By: Dr. Rogers Mac Addendum entered and electronically signed by Rogers Mac MD 12/04/21 07:35: Addendum Patient stayed longer in the hospital and was discharged on 01 December mostly was holding for bed or jail bed. Addendum entered and electronically signed by Rogers Mac MD 12/04/21 07:36: 86, M07/ DIS IN, MS2 MS206 -1 5ft 11in 67.5kg BSA: 1.83m? BMI: 20.8kg/m? Search Chart ONSET ONSET 12/01/21 08:56 NonFormulary Not Included in Conflicts No Data to Display Meaningful Use Info Meaningful Use Diagnoses (Choose all that apply): None applicable Discharge Plan Admission Admit Date/Time: 11/27/21 01:31 Primary Reason for Your Visit: renal failure. Attending Provider: En Sky Primary Care Provider: Sharona Ramos NP Consulting Providers: Tra Craft Instructions Additional Instructions / Restrictions: * maintain smith catheter in place. Discharge Orders/Prescriptions Prescriptions: New amoxicillin 500 mg capsule 500 mg PO TID Qty: 21 RF: 0 Continued pravastatin 40 mg tablet 40 mg PO QHS RF: 0 aspirin [Aspirin Low Dose] 81 mg Tablet,Delayed Release (Dr/Ec) 81 mg PO DAILY RF: 0 Hold Instructions: Resume on 04/30/21. acetaminophen 500 mg Tablet 500 mg PO DAILY RF: 0 tamsulosin 0.4 mg capsule 0.4 mg PO DAILY RF: 0 diphenhydramine HCl [Benadryl Allergy] 25 mg Tablet 25 mg PO Q6H PRN (Reason: ALLERGIES) RF: 0 niacin 500 mg Tablet 1,000 mg PO DAILY RF: 0 magnesium 250 mg Tablet 250 mg PO DAILY RF: 0 metoprolol succinate 25 mg tablet extended release 24 hr 25 mg PO DAILY RF: 0 diphenhydramine-acetaminophen [Acetaminophen PM] 25-500 mg Tablet 2 tab PO QHS RF: 0 saw palmetto 450 mg Capsule 450 mg PO DAILY RF: 0 PreserVision AREDS [id number] [id number] Capsule 1 cap PO DAILY RF: 0 fish,saf,flx,brg oils-O3,6,9#2 [id number] mg Capsule 1 cap PO DAILY RF: 0 dutasteride-tamsulosin 0.5-0.4 mg capsule, ER multiphase 24 hr 1 cap PO DAILY RF: 0 turmeric 400 mg Capsule 1,000 mg PO DAILY RF: 0 Glucosamine Chondroitin 550-30-1 mg Capsule 2 cap PO DAILY RF: 0 Restless Leg Relief 2 tab PO/SL QHS RF: 0 ciprofloxacin HCl [Cipro] 500 mg tablet 500 mg PO BID Qty: 14 RF: 0 Referrals / Follow Up: Rogers Mac MD [STAFF PHYSICIAN] - Within 2 Weeks Sharona Ramos NP, UNDERWRITING ACCOUNT REPRESENTATIVE-C [Primary Care Provider] - Within 2 Weeks Disposition Disposition (needs filled in before D/C Order can be placed): Intermediate Facility
== END 2021-12-01 13:44 | disposition skilled nursing facility (03) | DRG 683 ==
PROVIDERS: Family Medicine; Physician Assistant; Admitting Provider Urology; PCP Nurse Practitioner Family; Visit Provider Internal Medicine
DX: N17.9 Acute kidney failure, unspecified (principal); R78.81 Bacteremia; E46 Unspecified protein-calorie malnutrition; F03.91 Unspecified dementia, unspecified severity, with behavioral disturbance; E87.0 Hyperosmolality and hypernatremia; N39.0 Urinary tract infection, site not specified; I10 Essential (primary) hypertension; E78.00 Pure hypercholesterolemia, unspecified; B95.2 Enterococcus as the cause of diseases classified elsewhere; N13.30 Unspecified hydronephrosis; Z79.82 Long term (current) use of aspirin; Z87.891 Personal history of nicotine dependence; R33.9 Retention of urine, unspecified; Z86.73 Personal history of transient ischemic attack (TIA), and cerebral infarction without residual deficits; Z68.20 Body mass index [BMI] 20.0-20.9, adult
CPT/HCPCS: 36415; 76770; 80048; 80202; 85025; 85027; 87040; 87077; 87086; 87088; 87186; 87426; 97163; 97166; 97535; 97802; J7030; A4216

== ENCOUNTER 2022-05-19 16:52 | Emergency (ER) | payer MEDICARE, SELFPAY ==
[2022-05-19 16:54] VITALS: BP 131/63; PULSE 81; RESP 18; TEMP 36.8; O2SAT 95; BMI 22.4
--- NOTE | 2022-05-19 17:23 | EX.ED.DYSGE1 ---
HPI History of Present Illness Chief Complaint: Complaint Informant: patient and family Narrative Narrative: [facility] He has had a Black for about 3 years. They were changing it out but could not get a new one in. comes in here for Black placement. He has seen Dr. Mac before. He has had prostate cancer. He has been doing well recently. [facility] Medical History (Updated 05/19/22 @ 17:[address] Miguel Angel Cardenas MD) Agitation due to dementia Arthritis Back pain Cardiology follow-up encounter Confusion Former smoker High cholesterol History of pain when walking History of ulceration Hydronephrosis Hypertension Shortness of breath on exertion Skin tear TIA (transient ischemic attack) Urinary retention UTI (urinary tract infection) Wears dentures Wears glasses Medical History no medical history no medical history Home Medications Restless Leg Relief 2 tab PO/SL QHS 04/14/21 [History Last Taken Unknown] acetaminophen 500 mg tablet 500 mg PO DAILY 04/14/21 [History Last Taken Unknown] aspirin 81 mg tablet,delayed release (Lexie Low Dose Aspirin) 81 mg PO DAILY 04/14/21 [History Last Taken 04/11/21] diphenhydramine 25 mg-acetaminophen 500 mg tablet (Acetaminophen PM) 2 tab PO QHS 04/14/21 [History Last Taken Unknown] diphenhydramine HCl 25 mg tablet (Benadryl Allergy) 25 mg PO Q6H PRN ALLERGIES 04/14/21 [History Last Taken Unknown] dutasteride 0.5 mg-tamsulosin ER 0.4 mg capsule ext.release 24hr mphas 1 cap PO DAILY 04/14/21 [History Last Taken Unknown] fish,safflwr,flax,borag oils-om3,6,9 #2 800 mg-200 mg-150 mg-50 mg cap 1 cap PO DAILY 04/14/21 [History Last Taken Unknown] glucosamine sulf dipot chlr,msm,chond 550 mg-C 30 mg-andres 1 mg capsule (Glucosamine Chondroitin) 2 cap PO DAILY 04/14/21 [History Last Taken Unknown] magnesium 250 mg tablet 250 mg PO DAILY 04/14/21 [History Last Taken Unknown] metoprolol succinate 25 mg tablet,extended release 24 hr 25 mg PO DAILY 04/14/21 [History Last Taken 04/16/21] niacin 500 mg tablet 1,000 mg PO DAILY 04/14/21 [History Last Taken Unknown] pravastatin 40 mg tablet 40 mg PO QHS 04/14/21 [History Last Taken Unknown] saw palmetto 450 mg capsule 450 mg PO DAILY 04/14/21 [History Last Taken Unknown] tamsulosin 0.4 mg capsule 0.4 mg PO DAILY 04/14/21 [History Last Taken Unknown] turmeric 400 mg capsule 1,000 mg PO DAILY 04/14/21 [History Last Taken Unknown] vitamins A,C,Q-bxct-eofapb 14,320 unit-226 mg-200 unit capsule (PreserVision AREDS) 1 cap PO DAILY 04/14/21 [History Last Taken Unknown] ciprofloxacin HCl 500 mg tablet (Cipro) 500 mg PO BID #14 tabs 04/16/21 [Rx Last Taken Unknown] amoxicillin 500 mg capsule 500 mg PO TID #21 caps 12/01/21 [Rx Last Taken Unknown] Allergy/AdvReac Type Severity Reaction Status Date / Time No Known Allergies Allergy Verified 05/19/22 16:57 Surgical History History of cardiac catheterization (~2009) History of coronary artery stent placement (~2009) Social History Smoking Status: Former smoker ROS ROS ED Constitutional Constitutional ED: Denies chills or fever(s) Cardiovascular Cardiovascular: Denies chest pain Gastrointestinal Gastrointestinal: Denies abdominal pain, melena or vomiting Genitourinary Genitourinary ED: Reports other Details: Chronic indwelling Black for about 3 years. See history of present illness. EXAM Physical Exam Const Vital Signs: 05/19/22 16:54 Temperature 98.3 F Temperature Source Temporal Pulse Rate 81 Respiratory Rate 18 Blood Pressure 131/63 H Blood Pressure Mean 85 Pulse Ox 95 Oxygen Delivery Method Room Air Positive well nourished and well developed Constitutional Narrative: Patient is actually awake alert. He is very pleasant. He states he feels great. He has no complaint at this time. He would like to go. General Appearance ED: well developed HEENT Negative for trauma Chest Wall inspection of chest normal Resp normal respiratory effort Cardio regular rate GI normal to inspection, nondistended, normoactive bowel sounds and non-tender Palpation: soft Narrative: Catheter placed. Urine is good clear/pale yellow. No blood. No distended bladder felt. Back/Spine no CVA tenderness Skin no rashes or lesions noted MDM MDM MDM Narrative Medical decision making narrative: Nurse was able to place a Black without any difficulty. She immediately got back pale yellow urine. He feels well. I think we can get the patient back. Discharge Plan Triage Chief Complaint: Complaint ED Provider: Miguel Angel Cardenas Dx/Rx/DC Orders Clinical Impression: Acute on chronic urinary retention, Black catheter problem Instructions: ED Black Catheter, Care Prescriptions: No Action pravastatin 40 mg tablet 40 mg PO QHS Label Comments: TAKE 1 TABLET BY MOUTH ONCE DAILY aspirin [Lexie Low Dose Aspirin] 81 mg Tablet,Delayed Release (Dr/Ec) 81 mg PO DAILY Hold Instructions: Resume on 04/30/21. acetaminophen 500 mg Tablet 500 mg PO DAILY tamsulosin 0.4 mg capsule 0.4 mg PO DAILY Label Comments: TAKE 1 CAPSULE BY MOUTH AT BEDTIME diphenhydramine HCl [Benadryl Allergy] 25 mg Tablet 25 mg PO Q6H PRN (Reason: ALLERGIES) niacin 500 mg Tablet 1,000 mg PO DAILY magnesium 250 mg Tablet 250 mg PO DAILY metoprolol succinate 25 mg tablet extended release 24 hr 25 mg PO DAILY Label Comments: TAKE 1 TABLET BY MOUTH ONCE DAILY diphenhydramine-acetaminophen [Acetaminophen PM] 25-500 mg Tablet 2 tab PO QHS saw palmetto 450 mg Capsule 450 mg PO DAILY PreserVision AREDS 14,320-226-200 [id number] Capsule 1 cap PO DAILY fish,saf,flx,brg oils-O3,6,9#2 [phone] mg Capsule 1 cap PO DAILY dutasteride-tamsulosin 0.5-0.4 mg capsule, ER multiphase 24 hr 1 cap PO DAILY Label Comments: TAKE 1 CAPSULE BY MOUTH ONCE DAILY turmeric 400 mg Capsule 1,000 mg PO DAILY Glucosamine Chondroitin 550-30-1 mg Capsule 2 cap PO DAILY Restless Leg Relief 2 tab PO/SL QHS ciprofloxacin HCl [Cipro] 500 mg tablet 500 mg PO BID Qty: 14 0RF amoxicillin 500 mg capsule 500 mg PO TID Qty: 21 0RF Primary Care Provider: Mer Bear Referrals: Mer Bear, JOHANN-C [Primary Care Provider] - As Needed Disposition Disposition: Home, Self Care Discharge Date/Time: 05/19/22 18:08
--- NOTE | 2022-05-19 18:06 | ED.RN ---
daughter Laly present and states she is able to transport pt. hospice reports that their squad is done for the day and they would contact Physicians. Daughter states pt has not eaten lunch or dinner and she will transport home. pt is from [facility] in [place].
== END 2022-05-19 18:08 | disposition home or self-care (01) ==
PROVIDERS: Emergency Provider Emergency Medicine; PCP Nurse Practitioner Acute Care; Visit Provider Emergency Medicine
DX: Z46.6 Encounter for fitting and adjustment of urinary device (principal); C61 Malignant neoplasm of prostate; Z51.5 Encounter for palliative care; R33.9 Retention of urine, unspecified; E78.00 Pure hypercholesterolemia, unspecified; I10 Essential (primary) hypertension; M19.90 Unspecified osteoarthritis, unspecified site; Z95.5 Presence of coronary angioplasty implant and graft; Z79.82 Long term (current) use of aspirin; Z79.899 Other long term (current) drug therapy; Z87.440 Personal history of urinary (tract) infections; Z86.73 Personal history of transient ischemic attack (TIA), and cerebral infarction without residual deficits; Z87.891 Personal history of nicotine dependence
CPT/HCPCS: 51702; 99284